=== PATIENT | male | born 1955 | race Caucasian/White ===

== ENCOUNTER 2016-05-12 18:14 | Emergency (ER) | payer MEDICAID, OTHER ==
[~2016-05-12] VITALS: Ht 193 cm; Wt 92.3 kg
[~2016-05-12 18:14] MED LIST: CLON2TAB PO; HYDR-3797 PO; OXYC30TA80 PO
[2016-05-12 18:41] VITALS: BP 136/97; PULSE 78; RESP 14; O2SAT 98
--- NOTE | 2016-05-12 19:52 | ED.REPORT ---
HPI-General Illness Date of Service May 12, 2016 ED Provider: Toi Bush MD Pt is a 60 y/o male with a history of sleep apnea, psychiatric problems, PTSD, panic disorder, depression, and anxiety presents to the ER with head and neck pain with no clear onset. Pt claims his neck pain radiates towards his head. Pt believes he has a "blood infection" due to open wounds throughout his body. He reports waking up in the middle of the night with his ears ringing, head aching , diaphoresis to the hands and feet. Pt reportedly has tapered off prescription Rx for Oxycodone from 450 mg to 60 mg. Nursing Notes Stated Complaint: HEAD AND NECK PAIN Chief Complaint: General Complaint Nursing Notes Reviewed: Yes ([employer], [employer] not reconciled) Allergies: Coded Allergies: carbamazepine (Verified Allergy, Unknown, red hands, 05/12/16) codeine (Verified Allergy, Unknown, itching, 05/12/16) cyclobenzaprine (Verified Allergy, Unknown, mental status changes, 05/12/16 ) divalproex sodium (Verified Allergy, Unknown, red hands, 05/12/16) phenytoin (Verified Allergy, Unknown, red extremities, 05/12/16) lamotrigine (Verified Adverse Reaction, Mild, gi problems, 05/12/16) Uncoded Allergies: ANTIDEPRESSANTS (Allergy, Unknown, confusion, 11/10/15) Scheduled PRN Clonazepam (Klonopin) 2 Mg Tablet 2 MG PO TID PRN PRN For Anxiety Hydroxyzine Pamoate (HydrOXYzine Pamoate) 25 Mg Capsule 50 MG PO Q4H PRN PRN anxiety/agitation/insomnia oxyCODONE (oxyCODONE) 30 Mg Tablet 30-120 MG PO Q6H PRN PRN For Pain General Time Seen by MD: 19:50 Chief Complaint Headache, Multip medical complaints Hx Obtained From: Patient Arrived By: Ambulance Sudden in Onset?: No Onset Occurred: Onset unknown Symptom Duration: Duration unknown Location: : Head: Neck Quality: Painful, Throbbing Severity: Current: Mild Severity: Maximum: Moderate Past Medical History Past Medical History Notes: PCP: Dr. Grzegorz [facility] February 2016 for suicidal ideation Past Medical History H/o traumatic brain injury HTN Chronic neck pain and back pain [place] fibromyalgia Sleep apnea PRES- posterior reversible encephalopathy syndrome Denies MT Reports: Depression, Seizure disorder Past Surgical History None reported Smoking History Current Every Day Smoker Social History Alcohol Use: Denies alcohol use Drug Use: THC Other Social History: Lives alone Ambulatory Status Independent Review of Systems Full Review of Systems Musculoskeletal: Reports: Neck pain Skin: Reports Diaphoresis (feet and hands) Neurologic: Reports: Headache Psychiatric: Reports: Anxiety, Depression Complete sys rev & neg: except as marked. Physical Exam NIH stroke scale: 0 Vital Signs Vital Signs Date Time Temp Pulse Resp B/P Pulse Ox O2 Delivery O2 Flow Rate FiO2 05/12/16 23:20 76 24 139/103 96 Room Air 05/12/16 18:41 36.7 78 14 136/97 98 Room Air Initial VS: Reviewed, Vital signs normal General/Constitutional: Well-developed, Well-nourished Head / Eyes: Atraumatic, Normocephalic, PERRL ENT: Mucous membranes moist, Conjunctiva normal, No scleral icterus Neck: Supple, Non-tender, Full range of motion Respiratory: Breath sounds normal, Clear to auscultation, No respiratory distress Cardiovascular: Regular rate & rhythm, Heart sounds normal, Intact distal pulses Lymphatic: No lymphadenopathy Extremities: Vascular intact, Neuro intact, No swelling, No tenderness Skin: Warm, Dry, No cyanosis Neurologic: Alert, Oriented, Nonfocal Psychiatric: Mood/affect normal, Behavior normal, Normal thought content General/Constitutional: Awake, Alert, No acute distress chronically fatigued and ill appearing no evidence of abscess on scalp Neck: Atraumatic Lymphatic: No gross adenopathy Wrist / Hand: Atraumatic, Full range of motion expresses concern of infection of left thumb nail no signs of infection or bleed faint hint of erythema, no warmth or signs indicative of cellulitis Lower Extremity / Pelvis / MS: Full range of motion 2 patches of faint erythema on anterior shins, chronic No open wounds No cellulitis small follicular 1 cm abscess of right groin trace drainage, no surrounding induration or cellulitis 1 cm abscess of right groin Ankle / Foot: Atraumatic, Full range of motion complaining of right foot lump, do not appreciate any trauma or mass Neurologic: Oriented X3, Speech NL, No motor deficits, No sensory deficits, CN II - XII intact no focal deficits Interpretation & Diagnostics Lab Results Interpretation Result Diagram: 05/12/16209905/12/162099 Test 05/12/16 20:44 05/12/16 21:00 Hold Urine Received (Received) White Blood Count 6.6th/mm3 (3.8-10.1) Red Blood Count 4.68mil/mm3 (4.40-5.80) Hemoglobin 14.5g/dL (13.8-17.2) Hematocrit 42.0% (41.0-50.0) Mean Corpuscular Volume 89.7fL (81-100) Mean Corpuscular Hemoglobin 31.0pg (27.0-35.0) Mean Corpuscular Hemoglobin Concent 34.5% (32.0-37.0) Red Cell Distribution Width 12.8% (12.3-15.4) Platelet Count 221bil/L (150-400) Neutrophils (%) (Auto) 45.3% (40-74) Lymphocytes (%) (Auto) 45.0% (14-46) Monocytes (%) (Auto) 8.3% (4-12) Eosinophils (%) (Auto) 1.1% (0-5) Basophils (%) (Auto) 0.3% (0-3) Erythrocyte Sedimentation Rate 9mm/hr (0-30) Sodium Level 141mEq/L (134-144) Potassium Level 3.8mEq/L (3.5-5.2) Chloride Level 102mEq/L (97-108) Carbon Dioxide Level 28mmol/L (18-29) Blood Urea Nitrogen 7mg/dL (6-24) Creatinine 0.60mg/dL (0.76-1.27) Estimat Glomerular Filtration Rate 147mL/min (>59) Glucose Level 99mg/dL (60-99) Calcium Level 9.2mg/dL (8.5-10.1) Total Bilirubin 0.3mg/dL (0.0-1.2) Aspartate Amino Transf (AST/SGOT) 19U/L (0-50) Alanine Aminotransferase (ALT/SGPT) 15U/L (0-44) Alkaline Phosphatase 57U/L (25-160) Total Protein 7.7g/dL (6.4-8.4) Albumin 4.0g/dL (3.4-5.0) Hold Montiel Top Tube Received (Received) Lab Results Interpretation: CBC normal & CMP normal Blood cultures 2 pending X-Ray Interpretation Xray Interpretation: IMPRESSION: 1. No fracture or subluxation. Dictated by: Rocael Troncoso M.D. on 05/12/2016 at 21:37 Approved by: Rocael Troncoso M.D. on 05/12/2016 at 21:37 X-Ray Ordered: Foot right Interpretation / Wet Read by: Interpret - Radiologist CT Head Interpretation IMPRESSION: 1. No acute intracranial abnormality. Dictated by: Rocael Troncoso M.D. on 05/12/2016 at 21:21 Approved by: Rocael Troncoso M.D. on 05/12/2016 at 21:21 Interpretation / Wet Read by: Interpret - Radiologist Procedures Incision & Drainage Abscess I & D Abscess: Small amount of purulent drainage mixed with some clear material. Time: 21:28 Procedure Performed by: ED physician Location of Abscess: 1 cm abscess of right groin Skin Preparation Agent: Hibiclens - Chlorhexidine Local Anesthesia: Bupivacaine 0.25% Re-Eval/Medical Decision Med Decision/Clinical Course This is a 60-year-old male presents with a long multitude of complaints, many focused around pain. The patient is on chronic opiates, and was on very high opiates reporting being on over 400 mg of oxycodone daily, and has been weaned down, and is now down to 60 mg. This list of complaints today includes a headache over the past week, some transient left arm numbness where after sleeping on the arm, and is now resolved,( this occured a few days ago), a brief period of bleeding of his right thumb with a concern him may now be infected, a lump in his right groin, a right foot pain that has been worsened but is also chronic, and terrible generalized body aches. We asked him to list his main concern he tells me he is here with the big concern is developing a bloody infection. The patient mentions a concern and is worried about an infection, and describes a admission to [facility] for some unclear etiology-the most recent admission here as February, and describes [facility] notes his indicating a delirium, but it is not clear to me what the actual fundamental process was. On exam the patient's afebrile nontoxic, he appears chronically fatigued, and most of his complaints are focused around pain-the continues to mention the rather rapid taper down to his current dose of oxycodone. He has complaints in general are disproportionate name more severe compared to the physical exam findings. Patient has no focal neurologic findings, and has an NIH stroke scale is 0 for me. No signs of meningismus, he is afebrile,. His concern regarding the left thumb, his left thumb appears grossly normal, there is no paronychia, no signs of cellulitis, no signs of ascending lymphangitis, no signs of a scab or active bleeding, I cannot tell if he may have had a tiny injury to the nail fold,-but if so it is extremely clinically minimal, as essentially his thumb exam is normal. He does have a small cutaneous abscess in the right groin, spelled 1 cm in size and was incised and drained with trace purulence. It may be from clear, and MRSA is in the differential. He also reports a feeling of a fall in his right foot, but I do not appreciate any clinical evidence palpable, or visible pathology, and plain radiographs are normal. Overall found this patient very difficult one to evaluate as he had a multitude of complaints. A simple unifying diagnosis is unclear with exceptional possibility of a component of mild withdrawal from narcotics as he is being tapered down. He does not have piloerection, nausea vomiting diarrhea or other definitive signs of severe withdrawal. I do not appreciate a finding of a stroke, meningitis, or other acute neurologic emergency. He does not demonstrate clinically apparent signs of sepsis, or blood infection as he puts it. His physical exam, markers and laboratories are all unremarkable. His routine dose of oxycodone, and a single dose of IM Dilaudid while his workup is being pursued. The small cutaneous abscess in the groin, is quite small, and is hard to believe that it is the cause of his diffuse total body pain. He indicated that the pain medication narcotics that I did provide were inadequate to his pain, but I declined additional controlled substances explain my concern, and I do not think is appropriate to discharge him on controlled substances. I did initiate Bactrim for this cutaneous abscess and small surrounding cellulitis that was evident. Patient is discharged ambulating clinically well-appearing in no visible distress. Source of Hx: Old records Time of Eval: 21:28 Patient Status: Condition improved Re-Evaluation/Progress Note: Pt rechecked, who is resting. I&D is performed. Pt tolerates the procedure and there are no complications. Time of Eval: 22:56 Patient Status: Condition improved Re-Evaluation/Progress Note: Pt rechecked, who is feeling well. Diagnosis and the plan for discharge are discussed. The pt understands and agrees with the plan. All questions are addressed at this time. Differential Diagnosis: Negative: Abdominal pain, Acute coronary syndrome, COPD exacerbation, Fracture, Neutropenia, Pneumonia Counseled Regarding: Diagnosis, Lab results, Need for follow-up Discharge & Departure Primary Impression: Headache Headache type: unspecified Headache chronicity pattern: unspecified pattern Intractability: not intractable Qualified Code: R51 - Headache Additional Impressions: Cutaneous abscess Site of cutaneous abscess: trunk Site of cutaneous abscess of trunk: groin Qualified Code: L02.214 - Cutaneous abscess of groin Body aches Foot pain, right Chronic pain Chronic pain type: other chronic pain Qualified Code: G89.29 - Other chronic pain Narcotic habituation, continuous Discharge Condition All VS Reviewed: Yes Condition: Stable Additional Instructions: 1. Your CT Scan of the brain was normal. 2. Your blood tests did not reveal any signs of a blood infection which you indicated was your main concern. (Your blood tests were normal) We did send "blood cultures" today which will take several days for final results. You can call [phone] in ~3 days for results. 3. You did have a small cutaneous abscess in the right groin that was drained today. We also sent a "wound" culture from the groin. 4. Take the antibiotic trimethoprim/sulfa (Bactrim) 1 tab twice a day for 7 days (you will have 3 days left-over) 5. I do not appreciate any findings clinically of an infection of the left thumb where you report having bleeding earlier. 6. The Xray of your right foot was normal. A dangerous cause of the pain was not identified. 7. I can not provide further controlled substances - you will need to contact your provider managing your pain medications. 8. Return if new or worsening symptoms. Referrals: Freddy Sampson MD (PCP) Scribe Attestation Portions of this note were transcribed by Ki Newell and Juma Berry I , Dr. Bush personally performed the history, physical exam and medical decision-making; I reviewed and confirmed the accuracy of the information in the transcribed note. Signed by: Juma Berry and Victorino Medina, and 0 copies to: Freddy Sampson MD, Matthew F MD May 12, 2016 19:52 Ki Newell May 12, 2016 21:53 JUMA BERRY May 13, 2016 00:02
[2016-05-12] MEDS ORDERED: HYDROmorphone 1 mg/mL Inj IM ONE (20:25)
[2016-05-12 21:22] LABS: BASOPHILS % (AUTO) 0.3 % (0-3); EOSINOPHILS % (AUTO) 1.1 % (0-5); MONOCYTES % (AUTO) 8.3 % (4-12); Mean Corpuscular Volume 89.7 fL (81-100); NEUTROPHILS % (AUTO) 45.3 % (40-74); Platelet Count 221 bil/L (150-400)
--- NOTE | 2016-05-12 21:22 | DRSVH ---
PROCEDURE: CT BRAIN WITHOUT CONTRAST ([id number]) INDICATIONS: PACHECO + L arm numbness (resolved) TECHNIQUE: Noncontrast 4.5 mm thick angled axial sections acquired from the foramen magnum to the vertex, with c oronal reformats. COMPARISON: [facility], CT, CT BRAIN WO CON, 03/03/2016, 16:56. FINDINGS: Image quality: Excellent. CSF spaces: Basal cisterns are patent. No extra-axial fluid collections. Ventricles are normal in size and shape. Brain: No intracranial hemorrhage, mass, or mass effect. Davis-white matter interface is preserved. Skull and face: Calvarium and visualized facial bones are intact, without suspicious lesions. Sinuses: Visualized sinuses and mastoids are clear. IMPRESSION: 1. No acute intracranial abnormality. Dictated by: Rocael Troncoso M.D. on 05/12/2016 at 21:21 Approved by: Rocael Troncoso M.D. on 05/12/2016 at 21:21
--- NOTE | 2016-05-12 21:38 | DRSVH ---
PROCEDURE: X-RAY RIGHT FOOT COMPLETE, MINIMUM THREE VIEWS ([id number]) INDICATIONS: pain TECHNIQUE: 3 views of the foot were acquired. COMPARISON: [facility], CR, XR FOOT 3VW RT, 03/10/2015, 13:58. FINDINGS: Bones: No fractures or dislocations. No suspicious bony lesions. Soft tissues: No tibiotalar joint effusion. Achilles tendon appears normal. IMPRESSION: 1. No fracture or subluxation. Dictated by: Rocael Troncoso M.D. on 05/12/2016 at 21:37 Approved by: Rocael Troncoso M.D. on 05/12/2016 at 21:37
[2016-05-12 21:39] LABS: ERYTHROCYTE SEDIMENTATION RATE 9 mm/hr (0-30)
[2016-05-12] MEDS ORDERED: _Trimethoprim-Sulfa 160/800 mg Tablet PO SCH (22:45)
[2016-05-12 23:20] VITALS: BP 139/103; PULSE 76; RESP 24; O2SAT 96
[2016-05-13] MEDS ORDERED: SENN1TAB90 PO (19:16)
[2016-05-13] MEDS ORDERED: TAMS0.4C98 PO (19:16)
[2016-07-30] MEDS ORDERED: ZOLP10TA5 PO (12:15)
== END 2016-05-12 23:21 | disposition home or self-care (01) ==
LOC: SED 18:14 → EDBD 18:14 → SED 23:21
DX: R51 Headache (principal); L02.214 Cutaneous abscess of groin; M79.1 Myalgia; M79.671 Pain in right foot; G89.29 Other chronic pain; F11.20 Opioid dependence, uncomplicated; I10 Essential (primary) hypertension; G40.909 Epilepsy, unspecified, not intractable, without status epilepticus; F32.9 Major depressive disorder, single episode, unspecified; F17.200 Nicotine dependence, unspecified, uncomplicated; Z86.59 Personal history of other mental and behavioral disorders; Z86.69 Personal history of other diseases of the nervous system and sense organs; Z87.820 Personal history of traumatic brain injury; Z88.8 Allergy status to other drugs, medicaments and biological substances; Z88.5 Allergy status to narcotic agent
CPT/HCPCS: 10060; 36415; 70450; 73630; 80053; 85025; 85651; 87040; 87070; 87075; 87205; 96372; 99285; J1170

== ENCOUNTER 2016-05-13 15:23 | Emergency (ER) | payer OTHER ==
[~2016-05-13] VITALS: Ht 193 cm; Wt 92.3 kg
[2016-05-13 15:33] VITALS: BP 137/86; PULSE 89; RESP 15; O2SAT 99
--- NOTE | 2016-05-13 15:36 | ED.REPORT ---
HPI-Abd Pain M 40 and Over Date of Service May 13, 2016 ED Provider: Dr. Montanez Pt is a 60 y/o male w/ a hx of HTN, traumatic brain injury, presenting to the ED c/o bloody stools onset 2 weeks ago. He says that he was seen here last night for headache and neck pain but was too confused that he didn't realize that he wasn't seen for what he was originally brought here for which is bloody stool, abdominal pain, and constipation for 1-2 weeks. He denies CP, SOB, nausea , vomiting. Nursing Notes Stated Complaint: ABDOMINAL PAIN Chief Complaint: Male Abdominal Pain Nursing Notes Reviewed: Yes Allergies: Coded Allergies: carbamazepine (Verified Allergy, Unknown, red hands, 05/13/16) codeine (Verified Allergy, Unknown, itching, 05/13/16) cyclobenzaprine (Verified Allergy, Unknown, mental status changes, 05/13/16 ) divalproex sodium (Verified Allergy, Unknown, red hands, 05/13/16) phenytoin (Verified Allergy, Unknown, red extremities, 05/13/16) lamotrigine (Verified Adverse Reaction, Mild, gi problems, 05/13/16) Uncoded Allergies: ANTIDEPRESSANTS (Allergy, Unknown, confusion, 11/10/15) Scheduled PRN Clonazepam (Klonopin) 2 Mg Tablet 2 MG PO TID PRN PRN For Anxiety Hydroxyzine Pamoate (HydrOXYzine Pamoate) 25 Mg Capsule 50 MG PO Q4H PRN PRN anxiety/agitation/insomnia oxyCODONE (oxyCODONE) 30 Mg Tablet 30-120 MG PO Q6H PRN PRN For Pain General Time Seen by MD: 15:35 Chief Complaint Other (Bloody stools) Hx Obtained From: Patient, EMS Arrived By: Ambulance Sudden in Onset?: No Onset Occurred: More than a week ago... (2 weeks) Symptom Duration: Since onset Progression since Onset: Constant Location: : Diffuse Quality: Aching Severity: Current: Mild Severity: Maximum: Moderate Recent Healthcare: Recent doctor visit, Recent testing Similar Sx Previous: No Past Medical History Past Medical History Notes: PCP: Dr. Grzegorz Santiago [facility] February 2016 for suicidal ideation Past Medical History H/o traumatic brain injury HTN Chronic neck pain and back pain [place] fibromyalgia Sleep apnea PRES- posterior reversible encephalopathy syndrome - seen at [facility] Denies [place] Reports: Depression, Seizure disorder Past Surgical History None reported Smoking History Current Every Day Smoker Social History Alcohol Use: Denies alcohol use Drug Use: THC Other Social History: Lives alone Ambulatory Status Independent Review of Systems Constitutional: Denies: Chills, Fever Respiratory: Denies: Non-productive cough, Shortness of breath Cardiovascular: Denies: Chest pain GI: Reports: Abdominal pain, Bloody/tarry stool, Constipation Complete sys rev & neg: except as marked. Physical Exam Initial Vital Signs Vital Signs (First) Date Time Temp Pulse Resp B/P Pulse Ox O2 Delivery O2 Flow Rate FiO2 05/13/16 15:33 36.7 89 15 137/86 99 Room Air Initial VS: Reviewed, Vital signs normal Head / Eyes: Atraumatic, Normocephalic, PERRL ENT: Mucous membranes moist, Conjunctiva normal, No scleral icterus Neck: Supple, Full range of motion Extremities: Vascular intact, Neuro intact, No swelling, No tenderness Skin: Warm, Dry, No cyanosis Neurologic: Alert, Oriented, Nonfocal Psychiatric: Mood/affect normal, Behavior normal, Normal thought content General/Constitutional: Awake, Alert, No acute distress, Cooperative, Not toxic appearing Respiratory / Chest: Atraumatic, Breath sounds NL, Breath sounds = bilat, No respiratory distress, No rales, No rhonchi, No wheezing, No retractions Cardiovascular: Heart rate NL, Regular rhythm, Heart sounds NL, No gallop, No murmurs, No rubs, Cap refill not delayed, Peripheral circulation NL Abdomen: Atraumatic, Soft Tenderness/Guarding/Rebound: Positive: Tender diffuse (mild) Back: Full range of motion, Painless range of motion Rectum / Perineum: Atraumatic, Blood - occult heme -, No gross blood Interpretation & Diagnostics Lab Results Interpretation Result Diagram: 05/13/16 1628 Test 05/13/16 16:28 White Blood Count 6.0th/mm3 (3.8-10.1) Red Blood Count 4.55mil/mm3 (4.40-5.80) Hemoglobin 13.8g/dL (13.8-17.2) Hematocrit 41.3% (41.0-50.0) Mean Corpuscular Volume 90.8fL (81-100) Mean Corpuscular Hemoglobin 30.3pg (27.0-35.0) Mean Corpuscular Hemoglobin Concent 33.4% (32.0-37.0) Red Cell Distribution Width 12.7% (12.3-15.4) Platelet Count 206bil/L (150-400) Neutrophils (%) (Auto) 52.7% (40-74) Lymphocytes (%) (Auto) 34.7% (14-46) Monocytes (%) (Auto) 11.1% (4-12) Eosinophils (%) (Auto) 1.0% (0-5) Basophils (%) (Auto) 0.3% (0-3) Hold Blue Top Tube Received (Received) Hold Red Top Tube Received (Received) Hold Sanford Top Tube Received (Received) Hold Montiel Top Tube Received (Received) Lab Results Interpretation: Post-void residual: 500 cc X-Ray Abdominal Interpretation IMPRESSION: Nonspecific bowel gas pattern, no acute disease. Dictated by: Dar Hanson M.D. on 05/13/2016 at 16:42 Approved by: Dar Hanson M.D. on 05/13/2016 at 16:42 Carla boo - constipation Study: 4 view Interpretation / Wet Read by: Carla boo ED physician, Interpret - Radiologist Re-Eval/Medical Decision Med Decision/Clinical Course 60-year-old male presents for the second night in a row stating that we did not address his bowel concerns yesterday and focused only on his headache. He has had a small amount of blood when he wipes and has had some diffuse abdominal pain. He has not had a bowel movement for 1-2 weeks. He tried some Colace couple days ago which did not help. His CBC was rechecked and his hemoglobin is stable. There is no gross blood on exam but guaiac is mildly positive. I discussed with the patient that he will need to follow up with GI to evaluate this further. He later mentioned that he is also unable to empty his bladder lately. He had a post void residual of 500 so Singer was placed. After urology consultation and it was advised that he leave Singer in place until follow-up and begin Flomax. Patient adamantly demands we removed the Singer. He understands that he may end up in the same situation and may need to come back. He is willing to begin Flomax. I have asked him to follow-up with his primary doctor this week. Patient agrees with this plan Time of Eval: 17:34 Patient Status: Condition improved, Moderate relief, Pain improved Re-Evaluation/Progress Note: Patient notes that he has been unable to empty his bladder completely for the past couple of days. Patient urinated 450 ML's of urine prior to bladder scanner. Bladder scanner measures 500 ML's of urine post void residual Time of Eval: 19:01 Re-Evaluation/Progress Note: Singer catheter placed and 500 mL of urine removed. Consulted with urology who recommends leaving the catheter and follow-up in clinic next week. Patient informed of this and became very upset. States that he will not let us leave the catheter in his bladder even if he ends up here again. Demands we take it out. Willing to start Flomax Time of Eval: 19:02 Re-Evaluation/Progress Note: Pt rechecked . Singer removed.. Informed pt of plan for treatment. Pt understands and agrees with plan for treatment. F/U and RTER warnings given. All questions addressed. Consultation : Referral / Consult Name: Yolie Lynn MD Call Returned at: 18:54 Post Secondary Professional: Will see in office Note: Recommends leaving catheter until follow-up. Begin Flomax. Counseled Regarding: Diagnosis, Lab results, Need for follow-up, When/why to return to ED Discharge & Departure Primary Impression: Constipation Constipation type: slow transit constipation Qualified Code: K59.01 - Slow transit constipation Additional Impressions: Rectal bleeding Abdominal pain Abdominal location: generalized Qualified Code: R10.84 - Generalized abdominal pain Urinary retention Disposition: Home Vital Signs - All Vital Signs Date Time Temp Pulse Resp B/P Pulse Ox O2 Delivery O2 Flow Rate FiO2 05/13/16 15:33 36.7 89 15 137/86 99 Room Air )( All Prior VS Reviewed: Yes Condition: Stable Patient Instructions: Constipation (ED), Urinary Retention in Men (ED) Additional Instructions: Your blood count today compared to yesterday is unchanged. This indicates that there is no dangerous internal bleeding. Your other labs yesterday and today are also reassuring that there is nothing dangerous happening with your body. The abdominal x-ray today showed constipation and was otherwise normal. Please drink the third bottle of magnesium citrate when you get home and this should get your bowels moving. We do not see signs of bowel obstruction on the x-ray today. You were treated with 2 bottles of magnesium citrate and an enema here in the ER. Sometimes this takes a few hours to get things going. I do recommend that you take a stool softener and a laxative to keep your bowels regular which I have prescribed. You have been diagnosed with urinary tract obstruction as after trying to urinate and empty her bladder completely there was still half a liter of urine. We placed a Singer catheter and have recommended that he leave this in place until follow-up with urology next week but you adamantly demanded it be removed. Please take Flomax daily which will help prevent urinary obstruction. If your symptoms return you will have to return to the ER or urgent care to have a Singer catheter placed again. I recommend you follow-up with your primary care doctor in the next week for a re-evaluation. I also recommend that you follow up with the plate embosser to discuss your rectal bleeding. Return to the emergency department for increased bloody or black stools, severe abdominal pain, you develop a high fever, you are unable to urinate, or for other concerning symptoms. Referrals: Freddy Sampson MD (PCP) Nj Lyons MD, Amy M MD Scribe Attestation Portions of this note were transcribed by Marcelo Ponce. I, Dr. Win personally performed the history, physical exam and medical decision-making; I reviewed and confirmed the accuracy of the information in the transcribed note. Signed by Victorino Bell, 05/13/16 - [id number] copies to: Yolie Lynn MD; Freddy Sampson MD, Gary R DO May 13, 2016 15:36 MARCELO PONCE May 13, 2016 15:52
[2016-05-13] MEDS ORDERED: Sodium Biphos-Phos 133 mL Enema RECTAL PRN (15:50)
[2016-05-13 16:37] LABS: BASOPHILS % (AUTO) 0.3 % (0-3); MONOCYTES % (AUTO) 11.1 % (4-12); Mean Corpuscular Hemoglobin 30.3 pg (27.0-35.0); Mean Corpuscular Volume 90.8 fL (81-100); NEUTROPHILS % (AUTO) 52.7 % (40-74); Platelet Count 206 bil/L (150-400)
--- NOTE | 2016-05-13 16:43 | DRSVH ---
PROCEDURE: X-RAY ACUTE ABDOMINAL SERIES ([id number]) INDICATIONS: constipation, diffuse abdominal pain TECHNIQUE: One view chest and two views of the abdomen were acquired. COMPARISON: [facility], CT, CT ABD PELVIS W CON, 02/26/2016, 20:19. FINDINGS: Surgical changes and devices: None. Chest: Lungs are clear. Heart size is normal. No pleural effusions. No pneumoperitoneum. Abdomen: Bowel gas pattern is normal. No suspicious calcifications. Visualized solid organ contour s appear normal. Bones: No suspicious bony lesions. IMPRESSION: Nonspecific bowel gas pattern, no acute disease. Dictated by: Dar Hanson M.D. on 05/13/2016 at 16:42 Approved by: Dar Hanson M.D. on 05/13/2016 at 16:42
[2016-05-13] MEDS ORDERED: Lidocaine Topical 2% 30 mL Jelly ONE (18:38)
[2016-05-13] MEDS ORDERED: SENN1TAB90 PO (19:16)
[2016-05-13] MEDS ORDERED: TAMS0.4C98 PO (19:16)
[2016-05-13 19:40] VITALS: BP 134/85; PULSE 89; RESP 15; O2SAT 99
[2016-07-30] MEDS ORDERED: ZOLP10TA5 PO (12:15)
== END 2016-05-13 19:40 | disposition home or self-care (01) ==
LOC: EDBD 15:23 → SED 15:23
DX: K59.01 Slow transit constipation (principal); K62.5 Hemorrhage of anus and rectum; R10.84 Generalized abdominal pain; R33.9 Retention of urine, unspecified; I10 Essential (primary) hypertension; Z88.5 Allergy status to narcotic agent; Z88.8 Allergy status to other drugs, medicaments and biological substances

== ENCOUNTER 2016-05-31 12:49 | Emergency (ER) | payer OTHER ==
[~2016-05-31] VITALS: Ht 193 cm; Wt 87.7 kg
[~2016-05-31 12:49] MED LIST changes: +SENN1TAB90 PO; +TAMS0.4C98 PO
[2016-05-31 12:57] VITALS: BP 133/81; PULSE 72; RESP 16; O2SAT 98
--- NOTE | 2016-05-31 13:05 | ED.REPORT ---
HPI-General Illness Date of Service May 31, 2016 ED Provider: Dr. Mathis Pt is a 60 y/o male w/ a hx of psychiatric illnesses presenting to the ED from Urgent Care with multiple vague complaints onset 5 months ago. The pt had an appointment for a colonoscopy and during his appointment they were asking him questions and believed he wasn't answering appropriately so they recommended he come here for evaluation. He notes intermittent changes in vision bilaterally ( described as flashing lights) for 1 month, posterior neck pain, confusion and generalized weakness for 5 months, headache, night sweats, lightheadedness, intermittent headache, depression for 5 months, insomnia. He states these symptoms are similar to a previous episode when he was sent to [facility] for a "brain collapse causing compression of his visual cortex". He denies fever, vomiting, focal numbness or weakness. He takes 10 mg Oxycodone q4h and is tapering down his Lorazepam. He does not believe his mood has improved after his last psychiatric admission for major depression. PCP: Dr. Sampson Nursing Notes Stated Complaint: CONFUSION/WEAKNESS-SENT FROM URGENT CARE Chief Complaint: Psychiatric Complaint Nursing Notes Reviewed: Yes Allergies: Coded Allergies: carbamazepine (Verified Allergy, Unknown, red hands, 05/31/16) codeine (Verified Allergy, Unknown, itching, 05/31/16) cyclobenzaprine (Verified Allergy, Unknown, mental status changes, 05/31/16) divalproex sodium (Verified Allergy, Unknown, red hands, 05/31/16) phenytoin (Verified Allergy, Unknown, red extremities, 05/31/16) lamotrigine (Verified Adverse Reaction, Mild, gi problems, 05/31/16) Uncoded Allergies: ANTIDEPRESSANTS (Allergy, Unknown, confusion, 11/10/15) Scheduled Sennosides/Docusate Sodium (Senna-Docusate Sodium Tablet) 1 Each Tablet 1 EACH PO BID Tamsulosin (Flomax) 0.4 Mg Capsule 0.4 MG PO DAILY Scheduled PRN Clonazepam (Klonopin) 2 Mg Tablet 2 MG PO TID PRN PRN For Anxiety Hydroxyzine Pamoate (HydrOXYzine Pamoate) 25 Mg Capsule 50 MG PO Q4H PRN PRN anxiety/agitation/insomnia oxyCODONE (oxyCODONE) 30 Mg Tablet 30-120 MG PO Q6H PRN PRN For Pain General Time Seen by MD: 13:05 Chief Complaint Multip medical complaints Hx Obtained From: Patient Arrived By: Walk-in Sudden in Onset?: No Onset Occurred: More than a week ago... (5 months) Symptom Duration: Intermittent Location: : Head Quality: Aching Severity: Current: No pain currently Severity: Maximum: Moderate Recent Healthcare: Recent doctor visit, Recent testing, Previous diagnosis, Prior workup Similar Sx Previous: Yes Past Medical History Past Medical History Notes: PCP: Dr. Sampson [facility] February 2016 for suicidal ideation Past Medical History H/o traumatic brain injury Brain abscess HTN Chronic neck pain and back pain [place] fibromyalgia Sleep apnea PRES- posterior reversible encephalopathy syndrome - seen at [facility] Depression Bipolar Denies [place] Reports: Depression, Seizure disorder Past Surgical History None reported Smoking History Current Every Day Smoker Social History Alcohol Use: Denies alcohol use Drug Use: THC Other Social History: Lives alone Ambulatory Status Independent Review of Systems Full Review of Systems Constitutional: Reports: Weakness - generalized Musculoskeletal: Reports: Neck pain Skin: Reports Diaphoresis Neurologic: Reports: Confusion, Headache, Vision change Psychiatric: Reports: Change mental status, Confusion, Depression, Insomnia Complete sys rev & neg: except as marked. Physical Exam Vital Signs Vital Signs Date Time Temp Pulse Resp B/P Pulse Ox O2 Delivery O2 Flow Rate FiO2 05/31/16 17:21 63 127/71 100 Room Air 05/31/16 17:21 62 132/75 99 Room Air 05/31/16 17:21 62 129/73 98 Room Air 05/31/16 16:10 65 119/75 05/31/16 16:09 56 133/71 05/31/16 16:09 51 133/75 05/31/16 14:28 62 137/68 99 Room Air 05/31/16 14:28 73 103/68 100 Room Air 05/31/16 14:28 67 123/87 99 Room Air 05/31/16 12:57 36.6 72 16 133/81 98 Room Air Initial VS: Reviewed, Vital signs normal Respiratory: Breath sounds normal, Clear to auscultation, No respiratory distress Abdomen / GI: Soft, Non-tender, No guarding, No rebound, No distention Skin: Warm, Dry, No cyanosis General/Constitutional: Awake, Alert, No acute distress, Cooperative, Not toxic appearing Head / Eyes: Atraumatic, Normocephalic, PERRL ENT: Atraumatic, Airway patent, Mucous membranes moist, Pharynx NL Neck: Atraumatic, Supple, No meningismus, Full range of motion Cardiovascular: Heart rate NL, Regular rhythm, Heart sounds NL, No gallop, No murmurs, No rubs, Cap refill not delayed, Peripheral circulation NL Neurologic: Oriented X3, Speech NL, No motor deficits, No sensory deficits, Memory NL, Gait NL Psychiatric: No hallucinations Abnormal Mood/Affect: Positive: Depressed Long latency of answering questions Interpretation & Diagnostics Lab Results Interpretation Result Diagram: 05/31/16 1415 05/31/16 1415 Test 05/31/16 14:15 05/31/16 16:19 White Blood Count 4.5th/mm3 (3.8-10.1) Red Blood Count 4.41mil/mm3 (4.40-5.80) Hemoglobin 13.7g/dL (13.8-17.2) Hematocrit 40.4% (41.0-50.0) Mean Corpuscular Volume 91.6fL (81-100) Mean Corpuscular Hemoglobin 31.1pg (27.0-35.0) Mean Corpuscular Hemoglobin Concent 33.9% (32.0-37.0) Red Cell Distribution Width 12.5% (12.3-15.4) Platelet Count 194bil/L (150-400) Neutrophils (%) (Auto) 42.7% (40-74) Lymphocytes (%) (Auto) 44.4% (14-46) Monocytes (%) (Auto) 10.0% (4-12) Eosinophils (%) (Auto) 2.0% (0-5) Basophils (%) (Auto) 0.7% (0-3) Sodium Level 143mEq/L (134-144) Potassium Level 3.9mEq/L (3.5-5.2) Chloride Level 104mEq/L (97-108) Carbon Dioxide Level 28mmol/L (18-29) Blood Urea Nitrogen 7mg/dL (6-24) Creatinine 0.61mg/dL (0.76-1.27) Estimat Glomerular Filtration Rate 144mL/min (>59) Glucose Level 98mg/dL (60-99) Calcium Level 8.9mg/dL (8.5-10.1) Magnesium Level 2.1mg/dL (1.6-2.6) Total Bilirubin 0.3mg/dL (0.0-1.2) Aspartate Amino Transf (AST/SGOT) 28U/L (0-50) Alanine Aminotransferase (ALT/SGPT) 46U/L (0-44) Alkaline Phosphatase 60U/L (25-160) Total Protein 6.7g/dL (6.4-8.4) Albumin 4.1g/dL (3.4-5.0) Hold Montiel Top Tube Received (Received) Hold Urine Received (Received) CT Head Interpretation IMPRESSION: No acute intracranial disease process. Dictated by: Martha Chávez MD, PhD on 05/31/2016 at 14:14 Approved by: Martha Chávez MD, PhD on 05/31/2016 at 14:16 Study: Head CT no contrast Interpretation / Wet Read by: Interpret - Radiologist Re-Eval/Medical Decision Med Decision/Clinical Course Further discussion, patient relates onset of symptoms to starting Flomax. He does have some urinary hesitancy. He is unsure if the Flomax has helped. I have advised him to increase fluid intake and follow up with primary care. Additionally the patient was to follow-up with [facility] after his recent psychiatric admission in February 2016. He states that he made an appointment with [facility] but did not keep the appointment. I advised him to make another intake appointment and to keep this one. Time of Eval: 17:52 Patient Status: Condition improved, Moderate relief Re-Evaluation/Progress Note: Pt rechecked. Discussed negative lab results. Informed pt of plan for treatment. Pt understands and agrees with plan for treatment. F/U and RTER warnings given. All questions addressed Counseled Regarding: Diagnosis, Lab results, Need for follow-up, When/why to return to ED Discharge & Departure Primary Impression: Dehydration Additional Impressions: Orthostatic hypotension Depression Major depression recurrence: recurrent Major depression episode severity: moderate Disposition: Home Discharge Condition All VS Reviewed: Yes Condition: Stable Patient Instructions: Dehydration (ED) Additional Instructions: Emergency Department evaluation included an area, examination, labs and CT brain. Prior records were reviewed. We noted the blood pressure decreased somewhat when standing as opposed to lying down. This is evidence of some dehydration, likely also influenced by the Flomax you are taking. We advised continuing the Flomax and increasing oral intake of liquids. Follow-up with primary care in the next few days and follow-up with [facility] for intake as soon as possible. Continue previous home medications. Return emergency Department for fevers shaking chills chest pain shortness of breath or fainting. Referrals: Freddy Sampson MD (PCP) Scribe Attestation Portions of this note were transcribed by Marcelo Ponce. I, Dr. Mathis personally performed the history, physical exam and medical decision-making; I reviewed and confirmed the accuracy of the information in the transcribed note. Signed by Victorino Bell, 05/31/16 - [id number] copies to: Freddy Sampson MD, Donald L MD May 31, 2016 13:05 MARCELO PONCE May 31, 2016 13:10
--- NOTE | 2016-05-31 14:17 | DRSVH ---
PROCEDURE: CT BRAIN WITHOUT CONTRAST ([id number]) INDICATIONS: headache TECHNIQUE: Noncontrast 4.5 mm thick angled axial sections acquired from the foramen magnum to the vertex, with c oronal reformats. COMPARISON: [facility], CT, CT BRAIN WO CON, 05/12/2016, 20:46. [facility], CT, CT BRAIN WO CON, 03/03/2016, 16:56. [facility], CT, CT BRAIN WO CON, 11/10/2015, 17:1 0. [facility], CT, CT BRAIN WO CON, 06/04/2015, 22:27. FINDINGS: Image quality: Excellent. CSF spaces: Basal cisterns are patent. No extra-axial fluid collections. Ventricles are normal in size and shape. Brain: No midline shift. No intracranial masses or hemorrhage. Davis-white matter interface is norm al. Skull and face: Calvarium and visualized facial bones are intact, without suspicious lesions. Sinuses: Visualized sinuses and mastoids are clear. IMPRESSION: No acute intracranial disease process. Dictated by: Martha Chávez MD, PhD on 05/31/2016 at 14:14 Approved by: Martha Chávez MD, PhD on 05/31/2016 at 14:16
[2016-05-31 14:28] VITALS: BP_SYST 103; BP_SYST 123; BP_SYST 137; BP_DIAS 68; BP_DIAS 87; PULSE 62; PULSE 67; PULSE 73; O2SAT 100; O2SAT 99
[2016-05-31 14:28] LABS: BASOPHILS % (AUTO) 0.7 % (0-3); Mean Corpuscular Hemoglobin 31.1 pg (27.0-35.0); Mean Corpuscular Volume 91.6 fL (81-100); NEUTROPHILS % (AUTO) 42.7 % (40-74); Platelet Count 194 bil/L (150-400)
[2016-05-31] MEDS ORDERED: 0.9% Sodium Chloride 1,000 ML IV ONE ×2 (14:35→16:15)
[2016-05-31 14:49] LABS: Magnesium 2.1 mg/dL (1.6-2.6)
[2016-05-31 16:09] VITALS: BP_SYST 133; BP_DIAS 71; BP_DIAS 75; PULSE 51; PULSE 56
[2016-05-31 16:10] VITALS: BP 119/75; PULSE 65
[2016-05-31 17:21] VITALS: BP_SYST 127; BP_SYST 129; BP_SYST 132; BP_DIAS 71; BP_DIAS 73; BP_DIAS 75; PULSE 62; PULSE 63; O2SAT 100; O2SAT 98; O2SAT 99
[2016-07-30] MEDS ORDERED: ZOLP10TA5 PO (12:15)
== END 2016-05-31 18:05 | disposition home or self-care (01) ==
LOC: SED 12:49
DX: E86.0 Dehydration (principal); I95.1 Orthostatic hypotension; F33.1 Major depressive disorder, recurrent, moderate; I10 Essential (primary) hypertension; F17.200 Nicotine dependence, unspecified, uncomplicated; Z88.5 Allergy status to narcotic agent; Z88.8 Allergy status to other drugs, medicaments and biological substances
CPT/HCPCS: 36415; 70450; 80053; 83735; 85025; 96360; 96361; 99284; G0463; J7030

== ENCOUNTER 2016-07-13 13:37 | Emergency (ER) | payer OTHER ==
[~2016-07-13] VITALS: Ht 193 cm; Wt 86.4 kg
[2016-07-13 14:08] VITALS: BP 129/83; PULSE 85; RESP 12; O2SAT 99
[2016-07-13 14:24] VITALS: BP 120/84; PULSE 74; RESP 12; O2SAT 99
[2016-07-13 15:25] LABS: BASOPHILS % (AUTO) 0.3 % (0-3); EOSINOPHILS % (AUTO) 0.5 % (0-5); MONOCYTES % (AUTO) 10.2 % (4-12); Mean Corpuscular Hemoglobin 31.2 pg (27.0-35.0); Mean Corpuscular Volume 89.5 fL (81-100); NEUTROPHILS % (AUTO) 59.8 % (40-74); Platelet Count 214 bil/L (150-400)
--- NOTE | 2016-07-13 15:45 | DRSVH ---
PROCEDURE: X-RAY CHEST ONE VIEW, PORTABLE ([id number]) INDICATIONS: CHEST PAIN TECHNIQUE: One view of the chest was acquired. COMPARISON: [facility]ed [facility], CR, XR CHEST 1VW (PORTABLE), 11/16/2015, 19:37. FINDINGS: Surgical changes and devices: None. Lungs and pleura: No pleural effusions or pneumothorax. Lungs are clear. Mediastinum: Mediastinal contours appear normal. Heart size is normal. Bones and chest wall: No suspicious bony lesions. Overlying soft tissues appear unremarkable. IMPRESSION: No acute cardiopulmonary disease process. Dictated by: Martha Chávez MD, PhD on 07/13/2016 at 15:44 Approved by: Martha Chávez MD, PhD on 07/13/2016 at 15:44
[2016-07-13 15:56] LABS: Magnesium 2.1 mg/dL (1.6-2.6)
--- NOTE | 2016-07-13 15:58 | ED.REPORT ---
HPI-Chest Pain 40 and Over Date of Service Jul 13, 2016 ED Provider: Haile Mathis MD The patient is a 60 year old male who presents to the ED due to intermittent chest pressure onset this morning when he woke up at 0500. Woke up with chest tightness today but it has been going on for the past 7 months. It gets better when he gets out of the house and breathes fresh air. C/o associated tingly hands, SOB, diaphoresis, "coarse sand under his feet," scabs on his head, nasal congestion, insomnia. He is a smoker. Family hx of cancer and heart disease.Dr. Lane Umanzor is PCP. He tried antacids and they were not effective. Nursing Notes Stated Complaint: CHEST PAIN Chief Complaint: Chest Pain Nursing Notes Reviewed: Yes Allergies: Coded Allergies: carbamazepine (Verified Allergy, Unknown, red hands, 05/31/16) codeine (Verified Allergy, Unknown, itching, 05/31/16) cyclobenzaprine (Verified Allergy, Unknown, mental status changes, 05/31/16) divalproex sodium (Verified Allergy, Unknown, red hands, 05/31/16) phenytoin (Verified Allergy, Unknown, red extremities, 05/31/16) lamotrigine (Verified Adverse Reaction, Mild, gi problems, 05/31/16) Uncoded Allergies: ANTIDEPRESSANTS (Allergy, Unknown, confusion, 11/10/15) Scheduled Sennosides/Docusate Sodium (Senna-Docusate Sodium Tablet) 1 Each Tablet 1 EACH PO BID Tamsulosin (Flomax) 0.4 Mg Capsule 0.4 MG PO DAILY Scheduled PRN Clonazepam (Klonopin) 2 Mg Tablet 2 MG PO TID PRN PRN For Anxiety Hydroxyzine Pamoate (HydrOXYzine Pamoate) 25 Mg Capsule 50 MG PO Q4H PRN PRN anxiety/agitation/insomnia oxyCODONE (oxyCODONE) 30 Mg Tablet 30-120 MG PO Q6H PRN PRN For Pain General Time Seen by MD: 15:57 Chief Complaint Chest pain Hx Obtained From: Patient Arrived By: Walk-in Sudden in Onset?: Yes Onset Occurred: 9 - 12 hours ago Symptom Duration: Since onset Location: : Chest left Radiation: : Does not radiate Severity: Current: No pain currently Severity: Maximum: Mild Recent Healthcare: Recent doctor visit Similar Sx Previous: Yes Past Medical History Past Medical History Notes: PCP: Dr. Sampson [facility] February 2016 for suicidal ideation Past Medical History H/o traumatic brain injury Brain abscess HTN Chronic neck pain and back pain [place] fibromyalgia Sleep apnea PRES- posterior reversible encephalopathy syndrome - seen at [facility] Depression Bipolar Denies [place] Reports: Depression, Seizure disorder Past Surgical History None reported Smoking History Current Every Day Smoker Social History Alcohol Use: Denies alcohol use Drug Use: THC Other Social History: Lives alone Ambulatory Status Independent Review of Systems Respiratory: Reports: Shortness of breath Cardiovascular: Reports: Chest pain Skin: Reports Diaphoresis Neurologic: Reports: Numbness (hands) Complete sys rev & neg: except as marked. Physical Exam Physical Exam Notes: Initial Vital Signs Vital Signs (First) Date Time Temp Pulse Resp B/P Pulse Ox O2 Delivery O2 Flow Rate FiO2 07/13/16 14:08 37.2 85 12 129/83 99 07/13/16 14:24 Room Air Initial VS: Reviewed Head / Eyes: Atraumatic, Normocephalic, PERRL ENT: Mucous membranes moist, Conjunctiva normal, No scleral icterus Neck: Supple, Non-tender, Full range of motion Extremities: Vascular intact, Neuro intact, No swelling, No tenderness Skin: Warm, Dry, No cyanosis Psychiatric: Mood/affect normal, Behavior normal, Normal thought content General/Constitutional: Awake, Alert, No acute distress Respiratory / Chest: Atraumatic, Breath sounds NL, No respiratory distress Cardiovascular: Heart rate NL, Regular rhythm, Heart sounds NL, No gallop, No murmurs, No rubs Abdomen: Atraumatic, Soft, Non-tender Interpretation & Diagnostics Lab Results Interpretation Result Diagram: 07/13/16 1512 07/13/16 1512 Test 07/13/16 15:12 07/13/16 17:16 White Blood Count 6.5th/mm3 (3.8-10.1) Red Blood Count 4.97mil/mm3 (4.40-5.80) Hemoglobin 15.5g/dL (13.8-17.2) Hematocrit 44.5% (41.0-50.0) Mean Corpuscular Volume 89.5fL (81-100) Mean Corpuscular Hemoglobin 31.2pg (27.0-35.0) Mean Corpuscular Hemoglobin Concent 34.8% (32.0-37.0) Red Cell Distribution Width 13.0% (12.3-15.4) Platelet Count 214bil/L (150-400) Neutrophils (%) (Auto) 59.8% (40-74) Lymphocytes (%) (Auto) 29.0% (14-46) Monocytes (%) (Auto) 10.2% (4-12) Eosinophils (%) (Auto) 0.5% (0-5) Basophils (%) (Auto) 0.3% (0-3) Hold Blue Top Tube Received (Received) Sodium Level 140mEq/L (134-144) Potassium Level 3.9mEq/L (3.5-5.2) Chloride Level 102mEq/L (97-108) Carbon Dioxide Level 23mmol/L (18-29) Blood Urea Nitrogen 7mg/dL (6-24) Creatinine 0.59mg/dL (0.76-1.27) Estimat Glomerular Filtration Rate 149mL/min (>59) Glucose Level 111mg/dL (60-99) Calcium Level 9.3mg/dL (8.5-10.1) Magnesium Level 2.1mg/dL (1.6-2.6) Total Bilirubin 0.4mg/dL (0.0-1.2) Aspartate Amino Transf (AST/SGOT) 20U/L (0-50) Alanine Aminotransferase (ALT/SGPT) 17U/L (0-44) Alkaline Phosphatase 67U/L (25-160) Total Protein 7.6g/dL (6.4-8.4) Albumin 4.4g/dL (3.4-5.0) Hold Red Top Tube Received (Received) Hold [place] Top Tube Received (Received) Troponin T < 0.010ug/L (0.0-0.011) ECG Interpretation ECG Interpretation: Old inferior infarct Time: 13:57 Interpreted by: ED physician Normal ECG Interpretation: Normal sinus rhythm (80) X-Ray Chest Interpretation Chest Xray Interpretation: IMPRESSION: No acute cardiopulmonary disease process. Dictated by: Martha Chávez MD, PhD on 07/13/2016 at 15:44 Approved by: Martha Chávez MD, PhD on 07/13/2016 at 15:44 View: Portable Interpretation / Wet Read by: Interpret - Radiologist Re-Eval/Medical Decision Med Decision/Clinical Course complaint of chest pain today, has numerous other complaints as well. ECG without acute change and trop negative x2. Will refer back to primary care for further eval. Counseled Regarding: Diagnosis, Lab results, Need for follow-up, When/why to return to ED Discharge & Departure Primary Impression: Chest pain Chest pain type: unspecified Qualified Code: R07.9 - Chest pain, unspecified Disposition: Home Discharge Condition All VS Reviewed: Yes Condition: Stable Patient Instructions: Chest Pain (ED) Additional Instructions: Your work up at the Emergency Room today included EKG, lab work, and chest x- ray. All of your results were normal, there are no dangerous causes for your symptoms. Please follow up with your primary care physician for further care. Return to the Emergency Department for any new or worsening symptoms. I hope you feel better soon! Referrals: Freddy Sampson MD (PCP) Scribe Attestation Portion of this note were transcribed by Darling Sanches. I, Dr. Mathis, personally performed the history, physical exam, and medical decision-making: I reviewed and confirmed the accuracy for the information in the transcribed note. Signed by: billy Guan, 07/13/16 1700 copies to: Freddy Sampson MD, Donald L MD Jul 13, 2016 15:58 Darling Sanches Jul 13, 2016 16:08
[2016-07-13 16:04] LABS: TROPONIN T < 0.010 ug/L (0.0-0.011)
[2016-07-13] MEDS ORDERED: oxyCODONE-Acetamin 5-325 mg Tablet PO ONE (16:10)
[2016-07-13 18:19] VITALS: BP 149/93; PULSE 72; RESP 13; O2SAT 98
[2016-07-30] MEDS ORDERED: ZOLP10TA5 PO (12:15)
== END 2016-07-13 18:42 | disposition home or self-care (01) ==
LOC: EDBD 13:37 → EDSEX 13:37 → SED 13:37
DX: R07.89 Other chest pain (principal); R06.02 Shortness of breath; R61 Generalized hyperhidrosis; I10 Essential (primary) hypertension; M79.7 Fibromyalgia; F17.200 Nicotine dependence, unspecified, uncomplicated; Z88.5 Allergy status to narcotic agent; Z88.8 Allergy status to other drugs, medicaments and biological substances

== ENCOUNTER 2016-07-21 12:56 | Emergency (ER) | payer OTHER ==
[~2016-07-21] VITALS: Ht 193 cm; Wt 85.9 kg
[2016-07-21 13:10] VITALS: BP 140/86; PULSE 76; RESP 14; O2SAT 98
[2016-07-21] MEDS ORDERED: KLO1T PO (13:38)
[2016-07-21] MEDS ORDERED: OXYC5CAP4 PO (13:40)
[2016-07-21] MEDS ORDERED: OXYC10TA8 PO (13:40)
[2016-07-21] MEDS ORDERED: POLY17PO6 PO ×2 (13:41→17:34)
[2016-07-21 13:42] VITALS: BP 120/83; PULSE 70; RESP 14; O2SAT 98
--- NOTE | 2016-07-21 13:43 | ED.REPORT ---
HPI-Abd Pain M 40 and Over Date of Service Jul 21, 2016 ED Provider: LissethNapoleon Abdirashid GOODSON Pt is a 60 y/o male w/ a hx of diverticulosis, TBI, brain abscess, HTN, chronic pain on Oxycodone, psychiatric illness, presenting to the ED via EMS c/o diffuse abdominal pain with migration to the chest and bright red rectal bleeding onset today. He has been evaluated for rectal bleeding previously and was found to have hemorrhoids at which time he had much less bleeding compared to today. He had 1 bowel movement today with bright red blood on the TP and in the toilet water. He c/o associated lightheadedness/dizziness, night sweats, generalized weakness which he states all have been ongoing for 6 months. He denies tarry stool or melena, PACHECO, SOB, fever, chills. The patient has an endoscopy scheduled July 31, 2016. Nursing Notes Stated Complaint: BLOODY STOOL Chief Complaint: Male Abdominal Pain Nursing Notes Reviewed: Yes Allergies: Coded Allergies: carbamazepine (Verified Allergy, Unknown, red hands, 05/31/16) codeine (Verified Allergy, Unknown, itching, 05/31/16) cyclobenzaprine (Verified Allergy, Unknown, mental status changes, 05/31/16) divalproex sodium (Verified Allergy, Unknown, red hands, 05/31/16) phenytoin (Verified Allergy, Unknown, red extremities, 05/31/16) lamotrigine (Verified Adverse Reaction, Mild, gi problems, 05/31/16) Uncoded Allergies: ANTIDEPRESSANTS (Allergy, Unknown, confusion, 11/10/15) Scheduled Polyethylene Glycol 3350 (Miralax) 17 Gm Powd.pack 17 GM PO DAILY Tamsulosin (Flomax) 0.4 Mg Capsule 0.4 MG PO DAILY Scheduled PRN Clonazepam (Clonazepam) 1 Mg Tablet 1 MG PO TID PRN PRN For Anxiety Polyethylene Glycol 3350 (Miralax) 17 Gm Powd.pack 17 GM PO DAILY PRN PRN For Constipation oxyCODONE (oxyCODONE) 10 Mg Tablet 10 MG PO Q4H PRN PRN for pain, max of 60 mg per day General Time Seen by MD: 13:40 Chief Complaint Other (Rectal bleeding) Hx Obtained From: Patient, EMS Arrived By: Ambulance Sudden in Onset?: Yes Onset Occurred: 1 - 4 hours ago Symptom Duration: 1 - 15 minutes Progression since Onset: Intermittent Location: : Diffuse Quality: Painful Severity: Current: Mild Severity: Maximum: Moderate Recent Healthcare: Previous diagnosis, Prior workup Similar Sx Previous: Yes Past Medical History Past Medical History Notes: PCP: Dr. Sampson [facility] health admit February 2016 for suicidal ideation Past Medical History H/o traumatic brain injury Brain abscess HTN Chronic neck pain and back pain [place] fibromyalgia Sleep apnea PRES- posterior reversible encephalopathy syndrome - seen at [facility] Major depression Bipolar PTSD Denies [place] Reports: Depression, Seizure disorder Past Surgical History None reported Smoking History Current Every Day Smoker Social History Alcohol Use: Denies alcohol use Drug Use: THC Other Social History: Lives alone Ambulatory Status Independent Review of Systems Constitutional: Reports: Weakness - generalized, Denies: Chills, Fever Cardiovascular: Reports: Chest pain, Denies: Dyspnea on exertion GI: Reports: Abdominal pain, Hematochezia, Denies: Bloody/tarry stool, Melena, Nausea, Vomiting Complete sys rev & neg: except as marked. Neurologic: Reports: Dizziness, Lightheaded Physical Exam Initial Vital Signs Vital Signs (First) Date Time Temp Pulse Resp B/P Pulse Ox O2 Delivery O2 Flow Rate FiO2 07/21/16 13:10 36.6 76 14 140/86 98 Room Air Initial VS: Reviewed, Vital signs normal Head / Eyes: Atraumatic, Normocephalic, PERRL ENT: Mucous membranes moist, Conjunctiva normal, No scleral icterus Neck: Supple, Full range of motion Extremities: Vascular intact, Neuro intact, No swelling, No tenderness Skin: Warm, Dry, No cyanosis Neurologic: Alert, Oriented, Nonfocal Psychiatric: Mood/affect normal, Behavior normal, Normal thought content General/Constitutional: Awake, Alert, No acute distress, Cooperative, Not toxic appearing Respiratory / Chest: Atraumatic, Breath sounds NL, Breath sounds = bilat, No respiratory distress, No rales, No rhonchi, No wheezing, No retractions, No stridor, No chest tenderness, No chest wall deformity, No crepitus Cardiovascular: Heart rate NL, Regular rhythm, Heart sounds NL, No gallop, No murmurs, No rubs, Cap refill not delayed, Peripheral circulation NL Abdomen: Atraumatic, Soft, No rebound, No distention, No palpable mass Tenderness/Guarding/Rebound: Positive: Guarding involuntary (LLQ), Tender LLQ... (Moderate) Back: Full range of motion, Painless range of motion Male Genitourinary: Atraumatic External gross blood present External hemorrhoids that are not inflamed. No palpable internal hemorrhoids Gross blood on the gloved finger Interpretation & Diagnostics Lab Results Interpretation Result Diagram: 07/21/16 1320 07/21/16 1320 Test 07/21/16 13:20 07/21/16 14:45 White Blood Count 4.8th/mm3 (3.8-10.1) Red Blood Count 4.77mil/mm3 (4.40-5.80) Hemoglobin 14.9g/dL (13.8-17.2) Hematocrit 43.5% (41.0-50.0) Mean Corpuscular Volume 91.2fL (81-100) Mean Corpuscular Hemoglobin 31.2pg (27.0-35.0) Mean Corpuscular Hemoglobin Concent 34.3% (32.0-37.0) Red Cell Distribution Width 12.9% (12.3-15.4) Platelet Count 193bil/L (150-400) Neutrophils (%) (Auto) 43.1% (40-74) Lymphocytes (%) (Auto) 42.6% (14-46) Monocytes (%) (Auto) 12.0% (4-12) Eosinophils (%) (Auto) 1.7% (0-5) Basophils (%) (Auto) 0.4% (0-3) Hold Purple Top Tube Received (Received) Hold Blue Top Tube Received (Received) Sodium Level 141mEq/L (134-144) Potassium Level 4.5mEq/L (3.5-5.2) Chloride Level 102mEq/L (97-108) Carbon Dioxide Level 26mmol/L (18-29) Blood Urea Nitrogen 11mg/dL (6-24) Creatinine 0.67mg/dL (0.76-1.27) Estimat Glomerular Filtration Rate 129mL/min (>59) Glucose Level 109mg/dL (60-99) Calcium Level 9.6mg/dL (8.5-10.1) Total Bilirubin 0.4mg/dL (0.0-1.2) Aspartate Amino Transf (AST/SGOT) 17U/L (0-50) Alanine Aminotransferase (ALT/SGPT) 14U/L (0-44) Alkaline Phosphatase 60U/L (25-160) Troponin T < 0.010ug/L (0.0-0.011) Total Protein 7.5g/dL (6.4-8.4) Albumin 4.3g/dL (3.4-5.0) Hold Red Top Tube Received (Received) Hold [place] Top Tube Received (Received) Hold Montiel Top Tube Received (Received) Urine Color Straw (YELLOW) Urine Appearance Clear (CLEAR,HAZY) Urine pH 8.5 (5.0-8.0) Urine Specific [place] 1.015 (1.003-1.035) Urine Protein Negativemg/dL (NEG,TRACE) Urine Glucose (UA) Negativemg/dL (NEGATIVE) Urine Ketones Negativemg/dL (NEGATIVE) Urine Occult Blood Negative (NEGATIVE) Urine Nitrite Negative (NEGATIVE) Urine Bilirubin Negative (NEGATIVE) Urine Urobilinogen Normalmg/dL (NORMAL) Urine Leukocyte Esterase Negative (NEGATIVE) Urine RBC 0-2/hpf (0-2) Urine WBC 0-5/hpf (0-5) Urine Epithelial Cells Occasional/hpf (NONE-MOD) Urine Crystals None seen (NONE SEEN) Urine Bacteria None/hpf (NONE-FEW) Urine Hyaline Casts None/lpf (NONE) Urine Granular Casts None seen (NONE SEEN) Urine Waxy Casts None seen (NONE SEEN) Urine Red Blood Cell Casts None seen (NONE SEEN) Urine White Blood Cell Casts None seen (NONE SEEN) Urine Mucus None seen (None Seen) Urine Trichomonas None seen (NONE SEEN) Urine Yeast None (NONE SEEN) Urinalysis Comment None Urine Culture Reflexed Not indicated ECG Interpretation ECG Interpretation: Sinus rhythm rate 65 Low voltage Inverted T waves leads I, AvL which are new compared with 07/13/16 Time: 14:12 Interpreted by: ED physician Normal ECG Interpretation: No acute ischemic changes CT Abd / Pelvis Interpretation IMPRESSION: 1. Moderate colonic stool attention suggestive of constipation without evidence of obstruction. Dictated by: Rocael Troncoso M.D. on 07/21/2016 at 16:25 Approved by: Rocael Troncoso M.D. on 07/21/2016 at 16:28 Study type: Abdominal CT IV contrast, Abdom CT oral contrast Interpretation / Wet Read by: Interpret - Radiologist Re-Eval/Medical Decision Med Decision/Clinical Course 60-year-old male with a history of previous rectal bleeding without anemia presents noting he has had blood and one stool prior to arrival. He has not continued to have further stools and has not had any history of diarrhea. He is not anemic nor has he been in the past on my review of old records. His vital signs are normal. Due to complaining of left lower quadrant tenderness and GI bleeding elected to do a CT abdomen/pelvis. This returned negative except for constipation. It appeared to me that his bladder was significantly distended. Patient notes that he has had trouble urinating for the past several months and that his PCP put him on one month of Flomax and then did not refill it. Patient did not ask for a refill because he did not want to bother his PCP. He notes the medication helped significantly with urination. After our conversation he was able to empty his bladder and produced approximately 1200 mL of urine. Flomax was restarted here in the ER today. He has a colonoscopy and upper endoscopy scheduled for July 31. I do not feel there is any reason to repeat him in the hospital today his current symptoms as his EKG showed no acute STEMI, troponin was negative, he had no further stools with bleeding, he is not anemic, and he was able to empty his bladder. Patient agrees with the plan for follow-up and understands when to return. Most likely cause of his rectal bleeding is hemorrhoid I also sent him home with magnesium citrate to help with constipation Source of Hx: Old records, EMS Time of Eval: 14:47 Re-Evaluation/Progress Note: Pt rechecked. He is not orthostatic. Time of Eval: 16:43 Re-Evaluation/Progress Note: Pt rechecked. Children now in room. He admits to difficulty increasing urine stream and his CT scan shows a moderately distended bladder. Informed pt of normal imaging results. Informed pt of plan for treatment. Pt understands and agrees with plan for treatment. F/U and RTER warnings given. All questions addressed. He will be discharged after a BM. Counseled Regarding: Diagnosis, Lab results, Need for follow-up, When/why to return to ED Discharge & Departure Primary Impression: Constipation Constipation type: slow transit constipation Qualified Code: K59.01 - Slow transit constipation Additional Impressions: Abdominal pain Abdominal location: unspecified location Qualified Code: R10.9 - Unspecified abdominal pain BRBPR (bright red blood per rectum) Urinary retention External hemorrhoids Disposition: Home Vital Signs - All Vital Signs Date Time Temp Pulse Resp B/P Pulse Ox O2 Delivery O2 Flow Rate FiO2 07/21/16 17:56 36.7 63 14 127/76 99 Room Air 07/21/16 17:49 36.7 63 14 127/76 99 Room Air 07/21/16 15:38 36.7 64 14 143/81 100 Room Air 07/21/16 13:42 70 14 120/83 98 Room Air 07/21/16 13:10 36.6 76 14 140/86 98 Room Air )( All Prior VS Reviewed: Yes Condition: Stable Patient Instructions: Constipation (ED), Rectal Bleeding (ED) Additional Instructions: Your CT scan today showed that you are constipated. The cause of your bleeding may be hemorrhoids. You lab results today are completely normal. There are no signs of anemia. Drink the magnesium citrate once he get home to relieve your constipation. Take Flomax as directed. The CT scan showed that you had a very full bladder. If you are unable to urinate you need to come back so a Singer catheter can be placed. Keep the appointment for the endoscopy, this should provide a definite answer for your bleeding. Return to the emergency department for black stool, increasing fatigue or weakness, shortness of breath, increased chest pain, persistent vomiting or vomiting blood, or for any other concerning symptoms. Follow-up with your primary care doctor next week. Referrals: Freddy Sampson MD (PCP) Scribe Attestation Portions of this note were transcribed by Marcelo Ponce. I, Dr. Montanez personally performed the history, physical exam and medical decision-making; I reviewed and confirmed the accuracy of the information in the transcribed note. Signed by Victorino Bell, 07/21/16 - 1400 copies to: Freddy Sampson MD, Gary R DO Jul 21, 2016 13:43 MARCELO PONCE Jul 21, 2016 13:59
[2016-07-21] MEDS ORDERED: 0.9% Sodium Chloride 1,000 ML IV ONE (14:04)
[2016-07-21] MEDS ORDERED: LORazepam 1 mg Tablet PO ONE (14:05)
[2016-07-21] MEDS ORDERED: LidocaineVisc 2%:Antacid 1:1 10 mL Syringe PO ONE (14:10)
[2016-07-21] MEDS ORDERED: Iohexol 300 mg/mL 30 mL Inj PO ONE (14:15)
[2016-07-21 14:36] LABS: BASOPHILS % (AUTO) 0.4 % (0-3); EOSINOPHILS % (AUTO) 1.7 % (0-5); Mean Corpuscular Hemoglobin 31.2 pg (27.0-35.0); Mean Corpuscular Volume 91.2 fL (81-100); NEUTROPHILS % (AUTO) 43.1 % (40-74); Platelet Count 193 bil/L (150-400)
[2016-07-21 15:05] LABS: TROPONIN T < 0.010 ug/L (0.0-0.011)
[2016-07-21 15:38] VITALS: BP 143/81; PULSE 64; RESP 14; O2SAT 100
--- NOTE | 2016-07-21 16:30 | DRSVH ---
PROCEDURE: CT ABDOMEN AND PELVIS WITH CONTRAST ([id number]) INDICATIONS: LLQ abdominal pain, rectal bleeding TECHNIQUE: After the administration of oral and intravenous contrast, 5 mm thick sections acquired from the diap hragms to the symphysis. 5 mm thick coronal and sagittal reformats were performed. For radiation do se reduction, the following was used: automated exposure control, adjustment of mA and/or kV accordi ng to patient size. COMPARISON: [facility], CT, CT ABD PELVIS W CON, 02/26/2016, 20:19. FINDINGS: Image quality: Excellent. ABDOMEN: Lung bases: There is mild dependent atelectasis. Heart size is normal. Solid organs: Liver and spleen are normal in size and enhancement. Gallbladder appears within tommie l limits without calcified gallstones. Biliary system is non-dilated. Pancreas enhances normally. No adrenal nodules. Kidneys are normal in size and enhancement, without hydronephrosis. Peritoneum and bowel: Stomach and small bowel loops are normal in caliber and wall thickness. There is moderate colonic stool distention suggestive of constipation. No evidence of obstruction. No fr ee fluid or air. Nodes and vessels: No retroperitoneal or mesenteric adenopathy. Aorta and inferior vena cava are no rmal in caliber. Miscellaneous: No ventral hernias. PELVIS: Genitourinary: Bladder wall thickness is normal. Miscellaneous: No inguinal hernias or adenopathy. Bones: No suspicious bony lesions. No vertebral body compression fractures. IMPRESSION: 1. Moderate colonic stool attention suggestive of constipation without evidence of obstruction. Dictated by: Rocael Troncoso M.D. on 07/21/2016 at 16:25 Approved by: Rocael Troncoso M.D. on 07/21/2016 at 16:28
[2016-07-21 16:51] LABS: APPEARANCE,URINE CLEAR (CLEAR,HAZY); COLOR,URINE STRAW (YELLOW); OCCULT BLOOD,URINE NEGATIVE (NEGATIVE); PH,URINE 8.5 (5.0-8.0); UROBILINOGEN,URINE NORMAL (NORMAL)
[2016-07-21] MEDS ORDERED: TAMS0.4C98 PO (17:34)
[2016-07-21 17:49] VITALS: BP 127/76; PULSE 63; RESP 14; O2SAT 99
[2016-07-21 17:56] VITALS: BP 127/76; PULSE 63; RESP 14; O2SAT 99
[2016-07-30] MEDS ORDERED: ZOLP10TA5 PO (12:15)
== END 2016-07-21 17:59 | disposition home or self-care (01) ==
LOC: EDBD 12:56 → SED 12:56 → EDUNIT# 12:56 → SED 17:59
DX: K59.01 Slow transit constipation (principal); K64.8 Other hemorrhoids; R33.9 Retention of urine, unspecified; I10 Essential (primary) hypertension; M54.2 Cervicalgia; G89.29 Other chronic pain; F32.9 Major depressive disorder, single episode, unspecified; F17.200 Nicotine dependence, unspecified, uncomplicated; Z87.19 Personal history of other diseases of the digestive system; Z87.820 Personal history of traumatic brain injury; Z86.61 Personal history of infections of the central nervous system; Z79.891 Long term (current) use of opiate analgesic; Z88.8 Allergy status to other drugs, medicaments and biological substances; Z88.5 Allergy status to narcotic agent
CPT/HCPCS: 74177; 80053; 81000; 84484; 85025; 93005; 96360; 99285; J7030; Q9967

== ENCOUNTER 2016-07-31 10:03 | Day surgery (SDC) | payer OTHER ==
[~2016-07-31] VITALS: Ht 193 cm; Wt 85.7 kg
[~2016-07-31 10:03] MED LIST changes: -CLON2TAB PO; -HYDR-3797 PO; +KLO1T PO; +Lactated Ringer's 1,000 ML IV ONE; +OXYC10TA8 PO; -OXYC30TA80 PO; +POLY17PO6 PO; -SENN1TAB90 PO; +ZOLP10TA5 PO
[2016-07-31] MEDS ORDERED: fentaNYL-PF 50 mCg/mL 2 mL Inj ONE (10:04)
[2016-07-31] MEDS ORDERED: Propofol 10,000 mCg/mL 20 mL Inj ONE (10:04)
[2016-07-31 10:28] VITALS: BP 123/83; PULSE 66; RESP 16; O2SAT 100
--- NOTE | 2016-07-31 10:35 | PCM.HPANE ---
Patient Data Surgeon Admitting Provider: Attending Provider:Haile Horowitz MD Primary Care Physician:Freddy Sampson MD Other Provider:Vikki Ferraroingham Anesthesia Reason for Visit Gerd, Brbpr Ht/WT & BMI Body Mass Index Allergies Coded Allergies: buspirone (Verified Allergy, Unknown, 07/31/16) carbamazepine (Verified Allergy, Unknown, red hands, 07/31/16) codeine (Verified Allergy, Unknown, itching, 07/31/16) cyclobenzaprine (Verified Allergy, Unknown, mental status changes, 07/31/16) divalproex sodium (Verified Allergy, Unknown, red hands, 07/31/16) phenytoin (Verified Allergy, Unknown, red extremities, 07/31/16) lamotrigine (Verified Adverse Reaction, Mild, gi problems, 07/31/16) Uncoded Allergies: ANTIDEPRESSANTS (Allergy, Unknown, confusion, 11/10/15) Past Anesthesia History Anesthesia History: Denies:: Anesthesia Reactions Diabetes History Hx Diabetes?: No MRSA MRSA: No Medications Active Scripts Tamsulosin (Flomax)0.4 Mg Capsule0.4 Mg PO DAILY #30 CAPSULE Ref 0 Prov:Napoleon Montanez DO 07/21/16 Reported Medications Polyethylene Glycol 3350 (Miralax)17 Gm Powd.pack17 Gm PO DAILY PRN For Constipation 07/21/16 oxyCODONE 10 Mg Tbozfx20 Mg PO Q4H PRN for pain, max of 60 mg per day Ref 0 07/21/16 Clonazepam 1 Mg Tablet1 Mg PO TID PRN For Anxiety Ref 0 07/21/16 Discontinued Reported Medications Zolpidem 10 Mg Zejlzo49 Mg PO HS PRN For Insomnia Ref 0 07/30/16 Discontinued Scripts Polyethylene Glycol 3350 (Miralax)17 Gm Powd.pack17 Gm PO DAILY #1 BOTTLE Prov:Napoleon Montanez DO 07/21/16 History History of ENT Problems?: No Hx of Heart Problems?: No Cardiovascular History: Denies:: Congestive Heart Failure Hypertension Hx of Respiratory Problem?: No Respiratory History: Denies:: Tuberculosis Hx Neurologic Problems?: Yes Other History/Comments History of seizures in past. None recent. Hx of GI Problems?: Yes Gastrointestinal History: Positive for:: Rectal Bleeding Hx of Problems?: No Psycho Social History: Positive for:: Anxiety Hx Depression Denies:: Bipolar Disorder Suicide Attempt Hx Surgeries?: No Other History: Denies:: Hospitalization Hx Diabetes: No Hx Alcohol Use: NoHx Substance Use: Yes ([facility]) Smoking Status: Current Every Day Smoker Have You Smoked inLast 12 mo: Yes Stop/Bang Treated for Sleep Apnea?: Yes Do You Have a CPAP Machine?: No MARJORIE Risk Assessment: High Risk, =/>3 Yes Risk Assessment Category Category 1A: Patient has history of documented sleep apnea, and HAS NOT received any narcotic, sedative or anesthesia administration during this stay. Category 1B: Patient has history of documented sleep apnea, and HAS received any narcotic , sedative or anesthesia administration during this stay Category 2: Patient has SUSPECTED Obstructive Sleep Apnea, and HAS received any narcotic , sedative or anesthesia administration during this stay. Category 3: Patient has SUSPECTED Obstructive Sleep Apnea and HAS NOT received narcotic, sedative or anesthesia administration during this stay. Category 4: Outpatient in Procedural Areas with known sleep apnea or who screen positive for High Risk via the STOP/BANG questionnaire. Exam Exam Vital Signs Vital Signs Date Time Temp Pulse Resp B/P Pulse Ox O2 Delivery O2 Flow Rate FiO2 07/31/16 10:28 66 16 123/83 100 Room Air General Appearance: Alert, Oriented X3, Cooperative, No Acute Distress HEENT/AIRWAY: MP 2 Lungs: Clear to Auscultation, Normal Air Movement Heart: Exam Unremarkable, Regular Rate/Rhythm, No Murmurs/Rubs/Gallops Plan Impression Patient chart reviewed, patient interviewed and anesthestic plan with risks, benefits, and alternatives discussed, and informed consent obtained. ASA Physical Status: ASA2 Mod Systemic Disease Anesthetic Plan: MAC Bene/Risks/Altern/Consents: Yes HP Complete Prior to Induction: Yes Toi Pretty MD Jul 31, 2016 10:35
[2016-07-31] MEDS ORDERED: Lactated Ringer's 1,000 ML IV SCH (11:45)
[2016-07-31] MEDS ORDERED: Ondansetron 2 mg/mL 2 mL Inj IVPUSH PRN (11:45)
[2016-07-31] MEDS ORDERED: MetoCLOpramide 5 mg/mL 2 mL Inj IVPUSH PRN (11:45)
[2016-07-31 12:47] VITALS: BP 115/92; PULSE 67; RESP 14; O2SAT 100
--- NOTE | 2016-07-31 12:54 | PCM.ANEP1 ---
Post Anesthesia Phase 1 PACU Phase 1 Assessment Vital Signs Vital Signs Date Time Temp Pulse Resp B/P Pulse Ox O2 Delivery O2 Flow Rate FiO2 07/31/16 12:47 36.4 67 14 115/92 100 Room Air 07/31/16 10:28 66 16 123/83 100 Room Air Anesthetic Administered: MAC Level of Alertness: Sleepy, easy to arouse ANDERSON's with Equal Strength: Yes Pain: No Nausea or Vomiting: No Oxygen Delivery: Room Air, Nasal Cannula Lungs: Clear to Auscultation, Normal Air Movement Dermatome Level: Full Sensation Toi Pretty MD Jul 31, 2016 12:54
[2016-07-31 12:56] VITALS: BP 118/75; PULSE 60; RESP 14; O2SAT 100
--- NOTE | 2016-07-31 13:03 | PCM.ANEP2 ---
Post Anesthesia Evaluation ASA/CMS Post Anesthesia VS in Patient's Normal Range?: Yes Resp Stable; Airway Patent?: Yes CV Function & Hydration Stable: Yes Mental Status Recovered?: Yes Pain control Satisfactory?: Yes N/V Control Satisfactory?: Yes Toi Pretty MD Jul 31, 2016 13:03
[2016-07-31 13:07] VITALS: BP 120/77; PULSE 55; RESP 16; O2SAT 100
[2016-07-31 13:12] VITALS: BP 117/82; PULSE 55; RESP 14; O2SAT 100
--- NOTE | 2016-07-31 13:58 | ENDO ---
[address] [address] ENDOSCOPY PROCEDURE PATIENT: CYNTHIA GOULD : 1955 MR#: [id number] ADMIT: 07/31/2016 JOB ID: [id number] DATE OF SERVICE: 07/31/2016 PRIMARY PROVIDER: Lane Sampson MD. PROCEDURE: 1. Esophagogastroduodenoscopy with biopsies. 2. Colonoscopy with hot snare polypectomies. INDICATIONS: This is a 60-year-old male with weight loss and intermittent chest pains. He has a history of reflux. He also has had some red blood per rectum. EQUIPMENT: GIF-H180J and a PCF-H180AL. SEDATION: Monitored anesthesia as provided by Dr. Toi Pretty. COMPLICATIONS: None identified. PROCEDURE INFORMATION: After the risks and benefits were explained, written and verbal informed consent was obtained. The patient was brought into the endoscopy suite and placed into the left lateral decubitus position. Sedation was achieved as above. A scope introduced into the mouth through the bite block, and advanced to the second portion of the duodenum. The scope was slowly withdrawn to carefully examine the mucosa for any defects or lesions. Retroflexed views were accomplished in the stomach. The stomach was decompressed. The scope removed from the patient who tolerated the procedure well. The patient was then turned around. A digital rectal examination accomplished. No mass lesions detected. Internal hemorrhoids were noted. The scope was introduced into the rectum and advanced under direct visualization to the level of the cecum, as identified by the appendiceal orifice and ileocecal valve. The terminal ileum was briefly accessed. The scope was then slowly withdrawn to carefully examine the mucosa for any defects or lesions. Retroflexed views were accomplished in the rectum. The colon was decompressed. The scope removed from the patient who tolerated the procedure well. FINDINGS: 1. Duodenum: No ulcers. No mass lesions. No significant mucosal pathology from the bulb through to the second portion. Random biopsies were taken from D2 for exclusion of sprue. 2. Stomach: A random biopsy was taken from the body and then a biopsy from an eroded area in the proximal body were submitted as "gastric" biopsies. I did not appreciate any mass lesions. No outlet obstruction. No ulcers. 3. Esophagus: The squamocolumnar junction seemed to correlate with the top of the gastric folds. There was some mild esophagitis, LA grade A erosive esophagitis. The GEJ was at about 45 cm from the incisors. No other pathology appreciated in the esophagus. 4. Terminal ileum: This appeared visually normal. 5. The patient had no mass lesions. There were too difficult polyps in the sigmoid colon measuring between 7 and 9 mm each, removed with hot snare. There was a third approximately 12 mm polyp in the rectosigmoid region, also removed with hot snare. Retroflexed views disclosed some mildly inflamed internal hemorrhoids. No other significant pathology appreciated throughout. 6. Procedure time was greater than 1 hour of actual scoping. This was secondary to difficult polypectomies in the sigmoid. A 22 modifier was therefore requested. ENDOSCOPIC DIAGNOSES: 1. [place] grade A erosive esophagitis. 2. Subtle sliding hiatal hernia. 3. Erosive gastropathy. 4. Multiple colon polyps. 5. Inflamed, moderately engorged internal hemorrhoids. RECOMMENDATIONS: 1. For now, continue ranitidine twice daily. 2. Await histopathology. 3. Repeat colonoscopy in three years. 4. Fiber supplementation is encouraged daily. 5. A short course of Anusol HC suppository would be appropriate here. 6. Follow up in GI clinic in the next four weeks or so.
--- NOTE | 2016-08-02 11:25 | PATH ---
SURGICAL PATHOLOGY Attending Physician:Nery Staley CASE STATUS: Signed Out PATIENT NAME: CYNTHIA GOULD PID: [id number] : 1955 DATE COLLECTED:07/31/2016 20:11 SPECIMEN: 1: Duodenum, Biopsy 2: Gastric, Biopsy 3: Colon, Biopsy 4: Colon, Biopsy CLINICAL HISTORY: GERD, COLON POLYPS 1). DUODENUM BIOPSY 2). GASTRIC BIOPSY 3). COLON POLYPS X2 4). RECTAL SIGMOID POLYP X1 FINAL DIAGNOSIS: 1. Duodenum Biopsy: Duodenal mucosa with no diagnostic alterations. Negative for inflammation, celiac, dysplasia and malignancy. 2. Gastric Biopsy: Gastric body and antral mucosa with no diagnostic alterations. Negative for Helicobacter organisms. Negative for intestinal metaplasia. Negative for dysplasia and malignancy. 3. Colon Polyps x2: Tubular adenomas. 4. Rectosigmoid Colon x1: Tubular adenoma. ICD10 D12.6; D12.7 GROSS DESCRIPTION: The specimen is received in four formalin filled containers labeled with the patient's name. 1). The specimen is sublabeled "duodenum" and consists of 2 portions of tissue which aggregate to 0.2 x 0.2 x 0.2 CM. The specimen is entirely submitted in cassette 1A. 2). The specimen is sublabeled "gastric" and consists of a 0.3 x 0.2 x 0.2 CM portion of tissue which is entirely submitted in cassette 2A. 3). The specimen is sublabeled "colon polyps" and consists of 4 portions of tissue and possible debris which aggregate to 0.7 x 0.6 x 0.5 CM. The specimen is entirely submitted in cassette 3A. 4). The specimen is sublabeled "rectal sigmoid polyp" and consists of a 0.8 x 0.7 x 0.6 CM portion of tissue. The specimen is trisected and totally submitted in cassette 4A. 08/01/2016 [facility] MICRO DESCRIPTION: Please see diagnosis. ICD-9 CODES: CPT CODES: 1: 34019 2: 12303 3: 86923 4: 87854 Electronically Signed Out Verona Collins MD [facility] [place] [address] Technical component performed at [facility], [facility] [address], [place], [address]
== END 2016-07-31 23:59 | disposition home or self-care (01) ==
LOC: END 10:03
PROVIDERS: ATTEND Internal Medicine Gastroenterology
DX: D12.5 Benign neoplasm of sigmoid colon (principal); D12.8 Benign neoplasm of rectum; K64.8 Other hemorrhoids; K21.9 Gastro-esophageal reflux disease without esophagitis; K44.9 Diaphragmatic hernia without obstruction or gangrene; K22.10 Ulcer of esophagus without bleeding; R63.4 Abnormal weight loss; F41.9 Anxiety disorder, unspecified; G89.4 Chronic pain syndrome; F17.210 Nicotine dependence, cigarettes, uncomplicated; G47.33 Obstructive sleep apnea (adult) (pediatric); F31.30 Bipolar disorder, current episode depressed, mild or moderate severity, unspecified; Z68.23 Body mass index [BMI] 23.0-23.9, adult
CPT/HCPCS: 43239; 45385; 88305; J2250; J3010; J7120

== ENCOUNTER 2016-10-29 12:29 | Emergency (ER) | payer OTHER ==
[~2016-10-29] VITALS: Ht 193 cm; Wt 83.6 kg
[~2016-10-29 12:29] MED LIST changes: -Lactated Ringer's 1,000 ML IV ONE; -ZOLP10TA5 PO
[2016-10-29 12:34] VITALS: BP 128/86; PULSE 66; RESP 14; O2SAT 99
--- NOTE | 2016-10-29 13:19 | ED.REPORT ---
HPI-General Illness Date of Service Oct 29, 2016 ED Provider: Salvador Fisher MD Patient is a 61 year old male with a hx of COPD and hiatal hernia who presents to the ED after being referred by his doctor's office complaining of a painful bulge in his left upper abdominal wall onset a few weeks ago. He denies nausea , fever, vomiting, lightheadedness, new SOB, or any other symptoms. He has noticed some burning in his epigastrium that radiates up into his throat. He reports a high level of anxiety and thinks that he may be having a panic attack. He is able to pass flatus. He has not had any vomiting. He has not had any bloody or black/tarry stools. He denies any history of coronary artery disease. Nursing Notes Stated Complaint: SOB,CP Chief Complaint: Male Abdominal Pain Nursing Notes Reviewed: Yes Allergies: Coded Allergies: buspirone (Verified Allergy, Unknown, 10/29/16) carbamazepine (Verified Allergy, Unknown, red hands, 10/29/16) codeine (Verified Allergy, Unknown, itching, 10/29/16) cyclobenzaprine (Verified Allergy, Unknown, mental status changes, 10/29/16) divalproex sodium (Verified Allergy, Unknown, red hands, 10/29/16) phenytoin (Verified Allergy, Unknown, red extremities, 10/29/16) lamotrigine (Verified Adverse Reaction, Mild, gi problems, 10/29/16) Uncoded Allergies: ANTIDEPRESSANTS (Allergy, Unknown, confusion, 11/10/15) Scheduled Omeprazole (Omeprazole) 20 Mg Tablet.dr 20 MG PO BID Tamsulosin (Flomax) 0.4 Mg Capsule 0.4 MG PO DAILY Scheduled PRN Clonazepam (Clonazepam) 1 Mg Tablet 1 MG PO TID PRN PRN For Anxiety Polyethylene Glycol 3350 (Miralax) 17 Gm Powd.pack 17 GM PO DAILY PRN PRN For Constipation oxyCODONE (oxyCODONE) 10 Mg Tablet 10 MG PO Q4H PRN PRN for pain, max of 60 mg per day General Time Seen by MD: 13:11 Chief Complaint Abdominal pain Hx Obtained From: Patient Arrived By: Walk-in Onset Occurred: More than a week ago... (3 weeks) Symptom Duration: Since onset Similar Sx Previous: Yes Past Medical History Past Medical History Notes: PCP: Dr. Sampson Mental health admit February 2016 for suicidal ideation Past Medical History H/o traumatic brain injury Brain abscess HTN Chronic neck pain and [place] fibromyalgia Sleep apnea PRES- posterior reversible encephalopathy syndrome - seen at [facility] Major depression Bipolar PTSD Denies [place] Reports: COPD Reports: Depression, Seizure disorder Past Surgical History None reported Smoking History Current Every Day Smoker Social History Alcohol Use: Denies alcohol use Drug Use: THC Other Social History: Lives alone Ambulatory Status Independent Review of Systems Full Review of Systems Constitutional: Denies: Fever Respiratory: Denies: Shortness of breath GI: Reports: Abdominal pain, Denies: Nausea, Vomiting Neurologic: Denies: Lightheaded Complete sys rev & neg: except as marked. Physical Exam Vital Signs Vital Signs Date Time Temp Pulse Resp B/P Pulse Ox O2 Delivery O2 Flow Rate FiO2 10/29/16 14:43 55 16 121/76 99 10/29/16 12:34 36.7 66 14 128/86 99 Room Air Initial VS: Reviewed, Vital signs normal General/Constitutional: Well-developed, Well-nourished Head / Eyes: Atraumatic, Normocephalic Neck: Full range of motion Respiratory: Breath sounds normal, Clear to auscultation, No respiratory distress Cardiovascular: Intact distal pulses Skin: Warm, Dry Neurologic: Alert, Oriented, Nonfocal Psychiatric: Mood/affect normal, Behavior normal, Normal thought content Abdomen: Soft, Non-tender, No distention reducible hernia in LUQ Tolerates firm palpation to all 4 quadrants Interpretation & Diagnostics Lab Results Interpretation Result Diagram: 10/29/16 1418 10/29/16 1418 Test 10/29/16 14:18 White Blood Count 5.9th/mm3 (3.8-10.1) Red Blood Count 4.41mil/mm3 (4.40-5.80) Hemoglobin 13.8g/dL (13.8-17.2) Hematocrit 40.4% (41.0-50.0) Mean Corpuscular Volume 91.6fL (81-100) Mean Corpuscular Hemoglobin 31.3pg (27.0-35.0) Mean Corpuscular Hemoglobin Concent 34.2% (32.0-37.0) Red Cell Distribution Width 12.6% (12.3-15.4) Platelet Count 178bil/L (150-400) Neutrophils (%) (Auto) 50.7% (40-74) Lymphocytes (%) (Auto) 33.8% (14-46) Monocytes (%) (Auto) 12.8% (4-12) Eosinophils (%) (Auto) 2.0% (0-5) Basophils (%) (Auto) 0.5% (0-3) Sodium Level 142mEq/L (134-144) Potassium Level 4.0mEq/L (3.5-5.2) Chloride Level 104mEq/L (97-108) Carbon Dioxide Level 26mmol/L (18-29) Blood Urea Nitrogen 11mg/dL (8-27) Creatinine 0.57mg/dL (0.76-1.27) Estimat Glomerular Filtration Rate 155mL/min (>59) Glucose Level 94mg/dL (60-99) Calcium Level 8.9mg/dL (8.5-10.1) Magnesium Level 1.9mg/dL (1.6-2.6) Total Bilirubin 0.3mg/dL (0.0-1.2) Aspartate Amino Transf (AST/SGOT) 12U/L (0-50) Alanine Aminotransferase (ALT/SGPT) 11U/L (0-44) Alkaline Phosphatase 48U/L (25-160) Troponin T < 0.010ug/L (0.0-0.011) Pro-B-Type Natriuretic Peptide 53.77pg/mL (0-210) Total Protein 6.6g/dL (6.4-8.4) Albumin 3.8g/dL (3.4-5.0) ECG Interpretation ECG Interpretation: Sinus rate 57 Normal axis and intervals Abnormal R wave progression No change from prior Time: 12:50 Interpreted by: ED physician X-Ray Chest Interpretation Chest Xray Interpretation: IMPRESSION: 1. Findings compatible with COPD without acute changes. Dictated by: Rocael Troncoso M.D. on 10/29/2016 at 13:16 Approved by: Rocael Troncoso M.D. on 10/29/2016 at 13:18 View: AP & lat Interpretation / Wet Read by: Interpret - Radiologist Re-Eval/Medical Decision Med Decision/Clinical Course Patient is a 61-year-old male with a history of hiatal hernia who presents to the emergency department complaining of epigastric abdominal pain/burning that radiates into his chest in addition to noticing a lump about his left upper quadrant region. Here in the emergency department the patient is afebrile with stable vital signs and examination as above. Workup ordered from triage including troponin, CBC and CMP is unremarkable. Chest x-ray demonstrate no acute cardiopulmonary process. Here in the emergency room he was treated with a GI cocktail and reported significant symptomatic improvement. His vital signs and serial abdominal examinations remained stable. Of note he does have a easily reducible abdominal wall hernia about the left upper quadrant though there are no signs of stimulation or incarceration. Given his relatively benign abdominal examination I do not feel that imaging studies are immediately indicated. His overall presentation is not suggestive of acute coronary syndrome and initial screening EKG and troponin are reassuring. His history is not suggestive of PE nor does he have major risk factors for pulmonary embolism. Examination reveals findings suggestive of DVT. The patient does notdesire admission or further cardiac workup at this time. He has been referred to surgery for further evaluation of his hernia. At this time, I feel that he is appropriate for discharge. We have started him on a PPI.Prior to discharge follow-up and return precautions were reviewed in detail with the patient who verbalized understanding and agreement with the plan. The patient was discharged in stable condition. Time of Eval: 14:49 Re-Evaluation/Progress Note: Discussed plan for discharge. Patient understands and agrees with plan. All questions addressed at this time. Counseled Regarding: Diagnosis, Need for follow-up, When/why to return to ED Discharge & Departure Primary Impression: Abdominal wall hernia Additional Impressions: Epigastric pain GERD (gastroesophageal reflux disease) Esophagitis presence: esophagitis presence not specified Qualified Code: K21.9 - Gastro-esophageal reflux disease without esophagitis History of COPD Disposition: Home Discharge Condition All VS Reviewed: Yes Condition: Improved Additional Instructions: Thank you for seeking care at the emergency room. It is difficult for us to make definitive diagnoses in the ED but we believe that you are experiencing an abdominal wall hernia. Our primary goal today in the ED was to evaluate you for any life-threatening conditions. Your evaluation was reassuring. You should follow-up with your primary doctor in the next week. Call general surgery via the number provided to schedule a consultation. You should return to the ED immediately if you develop fevers, vomiting, shortness of breath, chest pain, lightheadedness, weakness, worsening abdominal pain, or any other concerning signs or symptoms. Also, if your hernia becomes stuck and you are unable to push it back in or you are unable to pass gas, return to the ED. Thank you for letting us partake in your care today. Referrals: Freddy Sampson MD (PCP) Scribe Attestation Portions of this note were transcribed by Tom Sahni. I, Dr. Fisher personally performed the history, physical exam and medical decision-making; I reviewed and confirmed the accuracy of the information in the transcribed note. Signed by: Tom Sahni 10/29/16, [id number] copies to: Benito Bermudez MD; Freddy Sampson MD, Beck O MD Oct 29, 2016 13:19 TOM SAHNI Oct 29, 2016 13:37
--- NOTE | 2016-10-29 13:20 | DRSVH ---
PROCEDURE: X-RAY CHEST, TWO VIEWS ([id number]) INDICATIONS: cp, sob TECHNIQUE: 2 views of the chest were acquired. COMPARISON: [facility], CT, CT ABD PELVIS W CON, 02/26/2016, 20:19. [facility] alli, CT, CT ABD PELVIS W CON, 07/21/2016, 15:51. [facility], CR, XR CHEST 1VW (PORTABLE), 07/13/2016, 14:45. FINDINGS: Surgical changes and devices: None. Lungs and pleura: No pleural effusions or pneumothorax. There is hyperinflation of the lungs with f lattening of the hemidiaphragms compatible with COPD. Lungs are clear. Mediastinum: Mediastinal contours are normal. Heart size is normal. Bones and chest wall: There is a mild superior endplate compression deformity of the T12 vertebral b odies which appears similar to the prior studies. Soft tissues appear unremarkable. IMPRESSION: 1. Findings compatible with COPD without acute changes. Dictated by: Rocael Troncoso M.D. on 10/29/2016 at 13:16 Approved by: Rocael Troncoso M.D. on 10/29/2016 at 13:18
[2016-10-29] MEDS ORDERED: LidocaineVisc 2%:Antacid 1:1 10 mL Syringe PO ONE (13:35)
[2016-10-29 14:31] LABS: BASOPHILS % (AUTO) 0.5 % (0-3); MONOCYTES % (AUTO) 12.8 % (4-12); Mean Corpuscular Hemoglobin 31.3 pg (27.0-35.0); Mean Corpuscular Volume 91.6 fL (81-100); NEUTROPHILS % (AUTO) 50.7 % (40-74); Platelet Count 178 bil/L (150-400)
[2016-10-29 14:43] VITALS: BP 121/76; PULSE 55; RESP 16; O2SAT 99
[2016-10-29 15:05] LABS: Magnesium 1.9 mg/dL (1.6-2.6)
[2016-10-29] MEDS ORDERED: OMEP20TA86 PO (15:05)
[2016-10-29 15:08] LABS: TROPONIN T < 0.010 ug/L (0.0-0.011)
== END 2016-10-29 15:33 | disposition home or self-care (01) ==
LOC: SED 12:29
DX: K43.9 Ventral hernia without obstruction or gangrene (principal); K21.9 Gastro-esophageal reflux disease without esophagitis; F41.8 Other specified anxiety disorders; I10 Essential (primary) hypertension; J44.9 Chronic obstructive pulmonary disease, unspecified; F31.9 Bipolar disorder, unspecified; M79.7 Fibromyalgia; F17.200 Nicotine dependence, unspecified, uncomplicated; Z87.820 Personal history of traumatic brain injury; Z88.5 Allergy status to narcotic agent; Z88.8 Allergy status to other drugs, medicaments and biological substances

== ENCOUNTER 2016-12-26 15:58 | Emergency (ER) | payer OTHER ==
[~2016-12-26] VITALS: Ht 193 cm; Wt 84.0 kg
[~2016-12-26 15:58] MED LIST changes: +OMEP20TA86 PO
[2016-12-26 16:02] VITALS: BP 146/82; PULSE 75; RESP 16; O2SAT 98
--- NOTE | 2016-12-26 16:12 | ED.REPORT ---
HPI-General Illness Date of Service Dec 26, 2016 ED Provider: Salvador Fisher MD Patient is a 61 year old male with a history of COPD, depression and bipolar disorder who presents to the ED with an array of complaints including depression , chills, generalized weakness, weight loss, chronic right neck and shoulder pain, constipation, malaise, confusion and unintentional weight loss. He reports that he sees a counselor and has tried many different anti depressants. The patient states that he feels as though he has been cognitively slow and confused for a very long time. Patient reports that he feels like he has an infection because over the last several months he has been experiencing vague/ intermittent symptoms. He states that he saw his counselor today who recommended the patient be seen due to his progressively worsening symptoms. Patient reports transient thoughts of self harm but doesn't think he would actually go through with it. He states that he has no intent of harming himself. Nursing Notes Stated Complaint: BLURRED VISION, ABDOMINAL PAIN, WEIGHT LOSS Chief Complaint: General Complaint Nursing Notes Reviewed: Yes Allergies: Coded Allergies: buspirone (Verified Allergy, Unknown, 10/29/16) carbamazepine (Verified Allergy, Unknown, red hands, 10/29/16) codeine (Verified Allergy, Unknown, itching, 10/29/16) cyclobenzaprine (Verified Allergy, Unknown, mental status changes, 10/29/16) divalproex sodium (Verified Allergy, Unknown, red hands, 10/29/16) phenytoin (Verified Allergy, Unknown, red extremities, 10/29/16) lamotrigine (Verified Adverse Reaction, Mild, gi problems, 10/29/16) Uncoded Allergies: ANTIDEPRESSANTS (Allergy, Unknown, confusion, 11/10/15) Scheduled Omeprazole (Omeprazole) 20 Mg Tablet.dr 20 MG PO BID Tamsulosin (Flomax) 0.4 Mg Capsule 0.4 MG PO DAILY Scheduled PRN Clonazepam (Clonazepam) 1 Mg Tablet 1 MG PO TID PRN PRN For Anxiety Polyethylene Glycol 3350 (Miralax) 17 Gm Powd.pack 17 GM PO DAILY PRN PRN For Constipation oxyCODONE (oxyCODONE) 10 Mg Tablet 10 MG PO Q4H PRN PRN for pain, max of 60 mg per day General Time Seen by MD: 16:11 Chief Complaint Other Hx Obtained From: Patient Arrived By: Walk-in Sudden in Onset?: No Onset Occurred: More than a week ago... Symptom Duration: Since onset Location: : Neck: Shoulder right Quality: Painful Severity: Current: Moderate Similar Sx Previous: Yes Past Medical History Past Medical History Notes: PCP: Dr. Sampson [facility] admit February 2016 for suicidal ideation Past Medical History H/o traumatic brain injury Brain abscess HTN Chronic neck pain and back pain [place] fibromyalgia Sleep apnea PRES- posterior reversible encephalopathy syndrome - seen at [facility] Major depression Bipolar PTSD Denies MT Reports: COPD Reports: Depression, Seizure disorder Past Surgical History None reported Smoking History Current Every Day Smoker Social History Alcohol Use: Denies alcohol use Drug Use: THC Other Social History: Lives alone Ambulatory Status Independent Review of Systems Full Review of Systems Constitutional: Reports: Chills, Malaise, Weakness - generalized, Denies: Fever Respiratory: Denies: Non-productive cough, Shortness of breath GI: Reports: Constipation Musculoskeletal: Reports: Neck pain Endocrine: Reports: Weight loss Skin: Denies Itching, Denies Rash Neurologic: Reports: Confusion, Denies: Numbness, Weakness Psychiatric: Reports: Depression Complete sys rev & neg: except as marked. Physical Exam Vital Signs Vital Signs Date Time Temp Pulse Resp B/P Pulse Ox O2 Delivery O2 Flow Rate FiO2 12/26/16 18:33 66 16 122/88 97 Room Air 12/26/16 18:28 66 122/88 97 Room Air 12/26/16 16:02 36.9 75 16 146/82 98 Room Air Initial VS: Reviewed General/Constitutional: Awake, Alert, No acute distress Head / Eyes: Atraumatic, Normocephalic, PERRL, EOMI Neck: Atraumatic, Supple Respiratory / Chest: Atraumatic, Breath sounds NL, Breath sounds = bilat, No respiratory distress Cardiovascular: Heart rate NL, Regular rhythm, Heart sounds NL Skin: Atraumatic, Color NL, No rash, Warm, Dry Psychiatric: Not homicidal, No hallucinations, Judgment/insight NL, Thought content NL Abnormal Mood/Affect: Positive: Flat affect Interpretation & Diagnostics Lab Results Interpretation Result Diagram: 12/26/16 1622 12/26/16 1622 Test 12/26/16 16:22 12/26/16 16:31 12/26/16 17:22 White Blood Count 8.2th/mm3 (3.8-10.1) Red Blood Count 5.05mil/mm3 (4.40-5.80) Hemoglobin 15.5g/dL (13.8-17.2) Hematocrit 44.1% (41.0-50.0) Mean Corpuscular Volume 87.3fL (81-100) Mean Corpuscular Hemoglobin 30.7pg (27.0-35.0) Mean Corpuscular Hemoglobin Concent 35.1% (32.0-37.0) Red Cell Distribution Width 12.4% (12.3-15.4) Platelet Count 198bil/L (150-400) Neutrophils (%) (Auto) 68.0% (40-74) Lymphocytes (%) (Auto) 21.6% (14-46) Monocytes (%) (Auto) 9.0% (4-12) Eosinophils (%) (Auto) 0.9% (0-5) Basophils (%) (Auto) 0.4% (0-3) Sodium Level 138mEq/L (134-144) Potassium Level 4.1mEq/L (3.5-5.2) Chloride Level 101mEq/L (97-108) Carbon Dioxide Level 23mmol/L (18-29) Blood Urea Nitrogen 8mg/dL (8-27) Creatinine 0.53mg/dL (0.76-1.27) Estimat Glomerular Filtration Rate 169mL/min (>59) Glucose Level 104mg/dL (60-99) Calcium Level 9.5mg/dL (8.5-10.1) Total Bilirubin 0.4mg/dL (0.0-1.2) Aspartate Amino Transf (AST/SGOT) 17U/L (0-50) Alanine Aminotransferase (ALT/SGPT) 18U/L (0-44) Alkaline Phosphatase 54U/L (25-160) Total Protein 8.3g/dL (6.4-8.4) Albumin 4.5g/dL (3.4-5.0) Thyroid Stimulating Hormone (TSH) 0.678uIU/mL (0.450-4.500) Hold Montiel Top Tube Received (Received) Urine Color Yellow (YELLOW) Urine Appearance Clear (CLEAR,HAZY) Urine pH 5.0 (5.0-8.0) Urine Specific [place] 1.005 (1.003-1.035) Urine Protein Negativemg/dL (NEG,TRACE) Urine Glucose (UA) Negativemg/dL (NEGATIVE) Urine Ketones Negativemg/dL (NEGATIVE) Urine Occult Blood Negative (NEGATIVE) Urine Nitrite Negative (NEGATIVE) Urine Bilirubin Negative (NEGATIVE) Urine Urobilinogen Normalmg/dL (NORMAL) Urine Leukocyte Esterase Negative (NEGATIVE) Urine RBC 0-2/hpf (0-2) Urine WBC 0-5/hpf (0-5) Urine Epithelial Cells None/hpf (NONE-MOD) Urine Crystals None seen (NONE SEEN) Urine Bacteria None/hpf (NONE-FEW) Urine Hyaline Casts None/lpf (NONE) Urine Granular Casts None seen (NONE SEEN) Urine Waxy Casts None seen (NONE SEEN) Urine Red Blood Cell Casts None seen (NONE SEEN) Urine White Blood Cell Casts None seen (NONE SEEN) Urine Mucus None seen (None Seen) Urine Trichomonas None seen (NONE SEEN) Urine Yeast None (NONE SEEN) Urinalysis Comment None Urine Culture Reflexed Not indicated Re-Eval/Medical Decision Med Decision/Clinical Course Patient is a 61 year old male with a history of COPD, depression and bipolar disorder who presents to the ED with an array of complaints including depression , chills, generalized weakness, weight loss, chronic right neck and shoulder pain, constipation, malaise, confusion and unintentional weight loss. He reports that he sees a counselor and has tried many different anti depressants. The patient states that he feels as though he has been cognitively slow and confused for a very long time. Patient reports that he feels like he has an infection because over the last several months he has been experiencing vague/ intermittent symptoms. He states that he saw his counselor today who recommended the patient be seen due to his progressively worsening symptoms. Patient reports transient thoughts of self harm but doesn't think he would actually go through with it. He states that he has no intent of harming himself. Here in the emergency department the patient is afebrile and hemodynamically stable. He denies suicidal ideation. His examination is notable for some mild to moderate psychomotor retardation those otherwise unremarkable. Labs: Breathalyzer:0 U tox: positive for THC, benzodiazepines, opiates, oxycodone CBC unremarkable CMP unremarkable TSH within normal limits I suspect the patient's presentation today is multifactorial and is clearly very chronic in nature. I suspect that it is related to his chronic depression and I suspect that his long-term use of opiates and benzodiazepines does not help with his chronic grogginess and feeling of low mental acuity. I see no evidence of acute infectious process at this time. I see no evidence of any medical emergency. I cannot definitively rule out all medical causes of the patient's symptoms today however screening examination and labs are reassuring. I counseled the patient that he may benefit from further management of his medications and cutting back on his benzodiazepines and opiates. At this time he seems uninterested in reducing his opiate and benzodiazepine consumption and is in fact requesting more of these medications in the emergency room. The patient was seen and evaluated by our social media executive is not felt to require hospitalization or further intervention from a psychiatric perspective. The patient has extensive community resources for which she will follow-up. He repeatedly denies any suicidal ideation and is linear/organized. Prior to discharge follow-up and return precautions were reviewed in detail with the patient who verbalized understanding and agreement with the plan. The patient was discharged in stable condition. Time of Eval: 18:10 Re-Evaluation/Progress Note: Discussed plan for discharge. Patient understands and agrees to plan. All questions were addressed. Counseled Regarding: Diagnosis, Lab results, Need for follow-up, When/why to return to ED Discharge & Departure Primary Impression: Depression Depression Type: unspecified Qualified Code: F32.9 - Major depressive disorder, single episode, unspecified Additional Impressions: Chills Malaise and fatigue Constipation Constipation type: unspecified constipation type Qualified Code: K59.00 - Constipation, unspecified Opiate dependence Substance use status: with unspecified opioid-induced disorder Qualified Code : F11.29 - Opioid dependence with unspecified opioid-induced disorder Benzodiazepine dependence Disposition: Home Discharge Condition All VS Reviewed: Yes Condition: Stable Patient Instructions: Constipation (ED) Additional Instructions: Thank you for seeking care at the emergency room. Our primary goal today in the Emergency Department was to evaluate you for any life-threatening conditions. Your evaluation was reassuring. Keep your appointment with your counselor to further discuss your symptoms. You can try using Magnesium Citrate for constipation. You should return to the Emergency Department immediately if you develop fevers , vomiting, thoughts of self harm or any other concerning signs or symptoms. Thank you for letting us partake in your care today. Referrals: Freddy Sampson MD (PCP) Victorino Attestation Portions of this note were transcribed by Cathie Benz. I, Dr. Fisher personally performed the history, physical exam and medical decision-making; I reviewed and confirmed the accuracy of the information in the transcribed note. Signed by: Victorino Craft, 12/26/16 copies to: Freddy Sampson MD, Beck O MD Dec 26, 2016 16:12 Chelsey Benz Dec 26, 2016 18:07
[2016-12-26 16:36] LABS: BASOPHILS % (AUTO) 0.4 % (0-3); EOSINOPHILS % (AUTO) 0.9 % (0-5); Mean Corpuscular Hemoglobin 30.7 pg (27.0-35.0); Mean Corpuscular Volume 87.3 fL (81-100); Platelet Count 198 bil/L (150-400)
[2016-12-26 18:02] LABS: APPEARANCE,URINE CLEAR (CLEAR,HAZY); COLOR,URINE YELLOW (YELLOW); OCCULT BLOOD,URINE NEGATIVE (NEGATIVE)
[2016-12-26 18:03] LABS: UROBILINOGEN,URINE NORMAL (NORMAL)
[2016-12-26 18:28] VITALS: BP 122/88; PULSE 66; O2SAT 97
[2016-12-26 18:33] VITALS: BP 122/88; PULSE 66; RESP 16; O2SAT 97
== END 2016-12-26 18:34 | disposition home or self-care (01) ==
LOC: SED 15:58
DX: F32.9 Major depressive disorder, single episode, unspecified (principal); R68.83 Chills (without fever); R53.81 Other malaise; K59.00 Constipation, unspecified; F11.29 Opioid dependence with unspecified opioid-induced disorder; F13.20 Sedative, hypnotic or anxiolytic dependence, uncomplicated; J44.9 Chronic obstructive pulmonary disease, unspecified; I10 Essential (primary) hypertension; F17.200 Nicotine dependence, unspecified, uncomplicated; F33.3 Major depressive disorder, recurrent, severe with psychotic symptoms; F12.10 Cannabis abuse, uncomplicated; Z87.820 Personal history of traumatic brain injury; Z88.5 Allergy status to narcotic agent; Z88.8 Allergy status to other drugs, medicaments and biological substances